=== PATIENT | female | born 1980 | race Caucasian/White ===

== ENCOUNTER 2020-08-18 14:19 | Outpatient (REF) | payer OTHER, SELFPAY | END 2020-08-18 14:20 | disposition home or self-care (01) | LOC: HO.LNP 14:19 | PROVIDERS: Visit Provider Internal Medicine Gastroenterology | DX: A04.8 Other specified bacterial intestinal infections (principal) | CPT/HCPCS: 87338 ==

== ENCOUNTER 2020-11-12 15:52 | Emergency (ER) | payer OTHER, SELFPAY ==
[2020-11-12] VITALS (7 sets, daily range): BP systolic 120–157; BP diastolic 74–94; PULSE 88–117; RESP 16–17; TEMP 36.9–37.1; O2SAT 96–100; BMI 24.1
--- NOTE | 2020-11-12 16:11 | ECG_ITS ---
Test Reason : DIZZINESS Blood Pressure : / mmHG Vent. Rate : 098 BPM Atrial Rate : 098 BPM P-R Int : 172 ms QRS Dur : 086 ms QT Int : 378 ms P-R-T Axes : 073 041 052 degrees QTc Int : 482 ms Normal sinus rhythm Prolonged QT Abnormal ECG No previous ECGs available Referred By: Ml Boo Electronically Signed By:KEE WHITESIDE
--- NOTE | 2020-11-12 16:11 | CT_ITS ---
EXAMINATION: CT HEAD WITHOUT CONTRAST CLINICAL INFORMATION: Dizziness. COMPARISON: None TECHNIQUE: Contiguous axial imaging was performed from the skull base to vertex without intravenous administration of contrast. This CT examination was performed using dose optimization techniques as appropriate, variously including the following: *Automated exposure control *Adjustment of mA and/or kV according to patient size (this includes techniques or standardized protocols for targeted exams where dose is matched to indication/reason for exam; i.e. extremities or head) *Use of iterative reconstruction technique DLP: 609 mGy-cm FINDINGS: There is no evidence of acute intracranial hemorrhage or territorial infarction. No abnormal mass effect or midline shift is seen. Baker to white matter differentiation is well preserved. No extra-axial fluid collections are identified. The ventricles are normal in size. There is no abnormal attenuation within the brain parenchyma. The osseous structures and soft tissues are normal. The mastoid air cells and visualized portions of the paranasal sinuses are well aerated. CT/CT head/brain wo con IMPRESSION: No acute intracranial process seen.
--- NOTE | 2020-11-12 16:12 | ED.DIZZY ---
HPI - Dizziness General Chief Complaint: Dizziness Stated Complaint: dissyness Time Seen by Provider: 11/12/20 16:11 Source: patient Mode of arrival: ambulatory Limitations: no limitations History of Present Illness MD elicited complaint: dizziness, lightheadedness and vertigo Onset (ago): week(s) (started on 11/05) Timing: sudden onset, intermittent and episodic Severity: severe Description: sense of movement and room spinning Context: change in body position and recent illness (started a couple of days after a GI vomiting illness) History of similar symptoms: No Exacerbating factors: movement/ambulation and change in body position Relieving factors: remaining still, lying down and keeping eyes closed Associated symptoms: nausea and weakness Associated neuro symptoms: other (one night while driving felt her perception was off) Related Data Previous Rx's Medication Instructions Recorded meclizine 25 mg PO TID PRN #30 tab 11/12/20 Allergies Allergy/AdvReac Type Severity Reaction Status Date / Time ALLERGY MEDICINE Allergy Unknown PUPILS Uncoded 07/29/20 15:59 DILATE AND GRINDING OF TEETH Review of Systems Review of Systems: Constitutional : No Weight loss, No Fever, No Chills, pos Fatigue, No Malaise ENT/Mouth : No sore throat, No Rhinorrhea Eyes: No Eye Pain, No Swelling, No Redness Cardiovascular : No Chest Pain, No SOB, No Dyspnea on Exertion, No Orthopnea, No Edema, No Palpitations Respiratory : No Cough, No Sputum, No Wheezing Gastrointestinal : pos Nausea, No Vomiting, No Diarrhea, No Constipation, No abdominal Pain, No Hematochezia, No Melena Genitourinary : No Dysuria, No Urinary Frequency, No Hematuria, Musculoskeletal : No joint pain, No Myalgias, No Joint Swelling Skin : No Skin Lesions, No rash Neuro : pos Weakness, No Numbness, pos Dizziness, No Headache Psych : No Anxiety/Panic, No Depression Heme/Lymph: No Bruising, No Bleeding,No Lymphadenopathy Endocrine : No Polyuria, No Polydipsia All other systems reviewed and are negative [facility] Past Medical History Attestation statement: The following information was validated with the patient. Medical History Methadone dependence Social History Social History (Updated 11/12/20 @ 16:36 by Ml Boo DO) Alcohol intake: never Smoking Status: Never smoker Use of substances other than those prescribed or required for medical reasons: No Substance Use Type: Former Substance User Advance Directives: No Advance Directives Information Provided: No Physical Exam Vital Signs: Vital Signs: Last Vital Signs Temp 98.7 F 11/12/20 16:02 Pulse 112 H 11/12/20 16:25 Resp 17 11/12/20 16:02 BP 153/90 H 11/12/20 16:25 Pulse Ox 100 11/12/20 16:02 Body Mass Index 24.1 Appearance: Alert. Oriented X3. No acute distress. very anxious Eyes: Pupils equal, round and reactive to light. ENT: Pharynx normal. Neck: Normal inspection. Neck supple. CVS: tachycardic heart rate and rhythm. Pulses normal. Respiratory: No respiratory distress. Breath sounds normal. Abdomen: Soft and non-tender. Skin: Skin warm and dry. Normal skin color. Normal skin turgor. Extremities: No lower extremity edema. No calf ttp Neuro: Oriented X 3. No motor deficit. No sensory deficit. Course Course Course Narrative: up and walking feels much better, stable for DC at this time MDM - Dizziness MDM Narrative Medical decision making narrative: 40 yo female with dizziness and feeling the room is spinning with position changes or head turning started after GI bug will need labs, ortho VS, CT head for mass, IV ativan, hydration, EKG, could be vertigo vs dehydration dispo per results and findings. Lab Data Result diagrams: 11/12/20 16:35 11/12/20 16:35 Labs: Lab Results 11/12/20 11/12/20 11/12/20 Range/Units 16:08 16:08 16:35 WBC 8.4 (4.8-10.8) X10*3/uL RBC 4.09 L (4.20-5.50) X10*6/uL Hgb 12.1 (12.0-16.0) g/dl Hct 36.3 L (37-47) % MCV 88.8 (80-98) fL MCH 29.6 (27.0-33.0) pg MCHC 33.3 (31.0-35.0) g/dl RDW 12.7 (11.0-16.0) % Plt Count 287 (160-400) X10*3/uL MPV 9.2 L (9.4-12.3) fL Immature Gran % (Auto) 0.4 (0.0-0.4) % Neut % (Auto) 79.3 H (45-73) % Lymph % (Auto) 11.6 L (20-40) % Potter % (Auto) 6.1 (2-11) % Eos % (Auto) 2.4 (0-4) % Baso % (Auto) 0.2 (0-2) % Lymph # (Auto) 1.0 L (1.2-4.9) X10*3/uL Potter # (Auto) 0.5 (0.1-1.2) X10*3/uL Eos # (Auto) 0.2 (0.0-0.4) X10*3/uL Baso # (Auto) 0.0 (0.0-0.2) X10*3/uL Abs Immat Gran (auto) 0.03 (0.00-0.03) X10*3/uL Absolute Neuts (auto) 6.7 (2.0-8.3) X10*3/uL Absolute Nucleated RBC 0.000 (0.0-0.012) X10*3/uL Nucleated RBC % (auto) 0.0 (0.0-0.2) /100WBC Hold Blue Top Sodium (135-145) mmol/L Potassium (3.3-5.1) mmol/l Chloride (96-108) mmol/L Carbon Dioxide (22-29) mmol/L Anion Gap (12-20) BUN (9-16) mg/dL Creatinine (0.5-1.4) mg/dL Estim Creat Clear Calc Estimated GFR Random Glucose (60-115) mg/dL Calcium (8.4-10.2) mg/dL Magnesium (1.6-2.6) mg/dL Total Bilirubin (0.0-1.0) mg/dL Direct Bilirubin (0.0-0.5) mg/dL AST (5-31) U/L ALT (0-31) U/L Alkaline Phosphatase (39-117) U/L Total Protein (6.5-8.0) g/dL Albumin (3.5-5.0) g/dL Lipase (8-78) U/L TSH (0.32-4.0) uIU/mL Urine Color STRAW Urine Appearance CLEAR Urine pH 7.0 (5.0-8.0) Ur Specific [place] <= 1.005 (1.005-1.025) Urine Protein NEG (NEG-TRACE) MG/DL Urine Glucose (UA) NEG (NEG) MG/DL Urine Ketones NEG (NEG) MG/DL Urine Blood NEG (NEG) Urine Nitrite NEG (NEG) Ur Leukocyte Esterase NEG (NEG) Urine Test NEGATIVE (NEGATIVE) COVID-19 (SKINNY) (Negative) COVID-19 Clin Com 11/12/20 11/12/20 11/12/20 Range/Units 16:35 16:35 16:35 WBC (4.8-10.8) X10*3/uL RBC (4.20-5.50) X10*6/uL Hgb (12.0-16.0) g/dl Hct (37-47) % MCV (80-98) fL MCH (27.0-33.0) pg MCHC (31.0-35.0) g/dl RDW (11.0-16.0) % Plt Count (160-400) X10*3/uL MPV (9.4-12.3) fL Immature Gran % (Auto) (0.0-0.4) % Neut % (Auto) (45-73) % Lymph % (Auto) (20-40) % Potter % (Auto) (2-11) % Eos % (Auto) (0-4) % Baso % (Auto) (0-2) % Lymph # (Auto) (1.2-4.9) X10*3/uL Potter # (Auto) (0.1-1.2) X10*3/uL Eos # (Auto) (0.0-0.4) X10*3/uL Baso # (Auto) (0.0-0.2) X10*3/uL Abs Immat Gran (auto) (0.00-0.03) X10*3/uL Absolute Neuts (auto) (2.0-8.3) X10*3/uL Absolute Nucleated RBC (0.0-0.012) X10*3/uL Nucleated RBC % (auto) (0.0-0.2) /100WBC Hold Blue Top SEE NOTE Sodium 138 (135-145) mmol/L Potassium 4.7 (3.3-5.1) mmol/l Chloride 98 (96-108) mmol/L Carbon Dioxide 31 H (22-29) mmol/L Anion Gap 14 (12-20) BUN 8 L (9-16) mg/dL Creatinine 0.82 (0.5-1.4) mg/dL Estim Creat Clear Calc 80.4 Estimated GFR > 60 Random Glucose 98 (60-115) mg/dL Calcium 9.5 (8.4-10.2) mg/dL Magnesium 2.1 (1.6-2.6) mg/dL Total Bilirubin 0.2 (0.0-1.0) mg/dL Direct Bilirubin < 0.2 (0.0-0.5) mg/dL AST 48 H (5-31) U/L ALT 48 H (0-31) U/L Alkaline Phosphatase 99 (39-117) U/L Total Protein 8.0 (6.5-8.0) g/dL Albumin 4.8 (3.5-5.0) g/dL Lipase 9 (8-78) U/L TSH 1.26 (0.32-4.0) uIU/mL Urine Color Urine Appearance Urine pH (5.0-8.0) Ur Specific [place] (1.005-1.025) Urine Protein (NEG-TRACE) MG/DL Urine Glucose (UA) (NEG) MG/DL Urine Ketones (NEG) MG/DL Urine Blood (NEG) Urine Nitrite (NEG) Ur Leukocyte Esterase (NEG) Urine Test (NEGATIVE) COVID-19 (SKINNY) Negative (Negative) COVID-19 Clin Com See Note ECG Data Attestation: I personally reviewed and interpreted this ECG as follows: ECG interpretation date: 11/12/20 ECG interpretation time: 16:54 Interpretation: Rate: 98 Rhythm: NSR [place]: normal Normal P waves. Normal MARIANNE. Normal QRS complex. ST T wave : normal prolonged qtc prior studies: no acute ischemia The study has been interpreted contemporaneously by me. . Discharge Plan Discharge Clinical Impression: Dizziness, Elevated liver function tests Patient Disposition: Home, Self-Care Instructions: Dizziness (ED) Additional Instructions: return to ED for any worsening symptoms or concerns Prescriptions: New meclizine 25 mg tablet 25 mg PO TID PRN (Reason: dizziness) Qty: 30 RF: 0 Referrals: Luis Francois MD [Primary Care Provider] - 3 days (if not better, RECHECK LIVER FUNCTION IN 1 WEEK) Stand Alone Forms: Work/School Release
[2020-11-12 16:17] LABS: UPreg QC Valid YES; Urine Pregnancy NEGATIVE (NEGATIVE)
[2020-11-12] MEDS: Meclizine HCl 25 MG TABLET PO (16:29)
[2020-11-12] MEDS: LORazepam 1 MG TABLET PO (16:29)
[2020-11-12] MEDS: 0.9 % Sodium Chloride 1,000 ML 999 ML IVCONT ×2 (16:38→18:40)
[2020-11-12 16:43] LABS: Basophils Percent Auto 0.2 % (0-2); Eosinophils Absolute Auto 0.2 X10*3/uL (0.0-0.4); Eosinophils Percent Auto 2.4 % (0-4); Hematocrit 36.3 % (37-47); Hemoglobin 12.1 g/dl (12.0-16.0); Imm Gran Abs Auto 0.03 X10*3/uL (0.00-0.03); Imm Gran Pct Auto 0.4 % (0.0-0.4); Lymphocytes Percent Auto 11.6 % (20-40); Mean Corpuscular HGB Conc 33.3 g/dl (31.0-35.0); Mean Corpuscular Hemoglobin 29.6 pg (27.0-33.0); Mean Corpuscular Volume 88.8 fL (80-98); Mean Platelet Volume 9.2 fL (9.4-12.3); Monocytes Absolute Auto 0.5 X10*3/uL (0.1-1.2); Monocytes Percent Auto 6.1 % (2-11); Neutrophils Absolute Auto 6.7 X10*3/uL (2.0-8.3); Neutrophils Percent Auto 79.3 % (45-73); Platelet Count 287 X10*3/uL (160-400); Red Blood Count 4.09 X10*6/uL (4.20-5.50); Red Cell Distribution Width 12.7 % (11.0-16.0); White Blood Count 8.4 X10*3/uL (4.8-10.8)
[2020-11-12 16:44] LABS: MANUAL DIFF FLAG NO
[2020-11-12 16:52] LABS: Glucose Urine UA NEG (NEG); Leukocyte Esterase Urine NEG (NEG); Nitrite Urine NEG (NEG); Specific Gravity - Urine <= 1.005 (1.005-1.025); Urine Blood NEG (NEG); Urine Ketones NEG (NEG); Urine Protein NEG (NEG-TRACE)
[2020-11-12 16:57] LABS: Appearance Urine CLEAR; Color Urine STRAW
[2020-11-12 17:06] LABS: COVID-19 Test Negative (Negative)
[2020-11-12 17:14] LABS: Alanine Aminotransferase 48 U/L (0-31); Albumin Level 4.8 g/dL (3.5-5.0); Alkaline Phosphatase 99 U/L (39-117); Anion Gap 14 (12-20); Aspartate Amino Transferase 48 U/L (5-31); Bilirubin Direct < 0.2 mg/dL (0.0-0.5); Bilirubin Total 0.2 mg/dL (0.0-1.0); Blood Urea Nitrogen 8 mg/dL (9-16); Calcium 9.5 mg/dL (8.4-10.2); Carbon Dioxide 31 mmol/L (22-29); Chloride 98 mmol/L (96-108); Creatinine Clr Calc Pharmacy 80.4; Estimated Glomerular Filt Rate > 60; Glucose Random 98 mg/dL (60-115); Lipase 9 U/L (8-78); Magnesium 2.1 mg/dL (1.6-2.6); Potassium 4.7 mmol/l (3.3-5.1); Sodium 138 mmol/L (135-145)
[2020-11-12 17:34] LABS: Thyroid Stimulating Hormone 1.26 uIU/mL (0.32-4.0)
--- NOTE | 2020-11-12 19:27 | PC.NURSE ---
ORTHOSTIC VITALS REPEATED DOCUMENTED AND REPORTED TO MD . PT AMBULATED WITH ASSISTANCE DIRECTED BY DR MCQUEEN. PT COMPLAINED OF NO DIZZINESS OR NAUSEA. PT STATED I FEEL IF I AM DRIFTING TO THE RIGHT AFTER TURNING THE CORNER PT DIRECTED BACK TO BED DR MCQUEEN AWARE
== END 2020-11-12 20:24 | disposition home or self-care (01) ==
PROVIDERS: Emergency Provider Emergency Medicine; PCP Internal Medicine
DX: R42 Dizziness and giddiness (principal); R79.89 Other specified abnormal findings of blood chemistry; Z20.828 Contact with and (suspected) exposure to other viral communicable diseases; F11.20 Opioid dependence, uncomplicated
CPT/HCPCS: 36415; 70450; 80048; 80076; 81003; 81025; 83690; 83735; 84443; 85025; 87635; 93005; 96360; 96361; 99284

== ENCOUNTER 2021-08-20 15:40 | Outpatient (REF) | payer OTHER, SELFPAY ==
[2021-08-20 15:56] LABS: Appearance Urine CLOUDY; Color Urine YELLOW; Glucose Urine UA NEG (NEG); Leukocyte Esterase Urine NEG (NEG); Nitrite Urine NEG (NEG); Specific Gravity - Urine >= 1.030 (1.005-1.025); Urine Blood NEG (NEG); Urine Ketones NEG (NEG); Urine Protein NEG (NEG-TRACE)
== END 2021-08-20 15:41 | disposition home or self-care (01) ==
LOC: HO.LNP 15:40
PROVIDERS: Visit Provider Physician Assistant Medical
DX: R39.15 Urgency of urination (principal)
CPT/HCPCS: 81003

== ENCOUNTER 2024-08-15 14:56 | Outpatient (REF) | payer OTHER, SELFPAY | END 2024-08-15 14:57 | disposition home or self-care (01) | LOC: HO.LAB 14:56 | PROVIDERS: PCP Internal Medicine; Visit Provider Internal Medicine | DX: Z13.89 Encounter for screening for other disorder (principal) ==

== ENCOUNTER 2024-08-18 06:57 | Outpatient (REF) | payer OTHER, SELFPAY ==
[2024-08-18 07:15] LABS: MANUAL DIFF FLAG NO
[2024-08-18 07:51] LABS: Basophils Percent Auto 0.7 % (0-2); Eosinophils Absolute Auto 0.1 X10*3/uL (0.0-0.4); Eosinophils Percent Auto 2.3 % (0-4); Hematocrit 33.2 % (37.0-47.0); Hemoglobin 10.9 g/dl (12.0-16.0); Imm Gran Abs Auto 0.04 X10*3/uL (0.00-0.03); Imm Gran Pct Auto 0.7 % (0.0-0.4); Mean Corpuscular HGB Conc 32.8 g/dl (31.0-35.0); Mean Corpuscular Hemoglobin 31.3 pg (27.0-33.0); Mean Corpuscular Volume 95.4 fL (80.0-98.0); Mean Platelet Volume 9.7 fL (9.4-12.3); Monocytes Absolute Auto 0.4 X10*3/uL (0.1-1.2); Monocytes Percent Auto 6.6 % (2-11); Neutrophils Absolute Auto 3.2 x10*3/uL (2.0-8.3); Neutrophils Percent Auto 54.7 % (45-73); Platelet Count 301 X10*3/uL (160-400); Red Blood Count 3.48 X10*6/uL (4.20-5.50); Red Cell Distribution Width 16.3 % (11.0-16.0); White Blood Count 5.8 X10*3/uL (4.8-10.8)
[2024-08-18 08:30] LABS: Alanine Aminotransferase 49 U/L (0-31); Albumin Level 4.7 g/dL (3.5-5.0); Alkaline Phosphatase 74 U/L (39-117); Anion Gap 10 (12-20); Aspartate Amino Transferase 35 U/L (5-31); Bilirubin Total 0.2 mg/dL (0.0-1.0); Blood Urea Nitrogen 12 mg/dL (9-16); Calcium 9.6 mg/dL (8.4-10.2); Carbon Dioxide 32 mmol/L (22-29); Chloride 103 mmol/L (96-108); Cholesterol 395 mg/dL (<200); Estimated Glomerular Filt Rate 51; Glucose Random 95 mg/dL (60-115); Potassium 4.2 mmol/L (3.3-5.1); Sodium 141 mmol/L (135-145); Total Protein 7.8 g/dL (6.5-8.0)
[2024-08-18 08:54] LABS: Thyroid Stimulating Hormone > 100.00 uIU/mL (0.32-4.0); Vitamin D 25-OH Total 13.1 ng/mL (>30)
== END 2024-08-18 06:58 | disposition home or self-care (01) ==
LOC: HO.LAB 06:57
PROVIDERS: PCP Internal Medicine; Visit Provider Internal Medicine
DX: R63.5 Abnormal weight gain (principal); F41.9 Anxiety disorder, unspecified; L30.9 Dermatitis, unspecified
CPT/HCPCS: 36415; 80053; 82306; 82465; 84443; 85025

== ENCOUNTER 2024-10-19 14:25 | Emergency (ER) | payer OTHER, SELFPAY ==
--- NOTE | 2024-10-19 14:28 | ED.BACK ---
HPI - Back Pain/Injury General Chief Complaint: Back Pain/Injury Stated Complaint: sciatica Time Seen by Provider: 10/19/24 16:54 Source: patient and family Mode of arrival: ambulatory Limitations: no limitations History of Present Illness ED Provider: Cristopher HPI Narrative: This is a 44-year-old female who presents with 1 week of left hip pain that radiates down into her knee. Patient reports that when the pain came on she was sitting on the toilet. She reports that the past 2 days she was feeling okay and attempted to try and go into work, however the pain became significantly worse. She does have a history of degenerative changes, as well as history of a pinched nerve in her neck that she was seen at [facility] for approximately 3-4 years ago. Patient has taken high doses of ibuprofen, intermittent Tylenol, low doses of left over gabapentin she had, is on 30 mg of methadone daily, all without relief of her symptoms. She reports that the pain comes and goes, feels that her left hip to her left knee, numbness over the knee. She denies saddle anesthesia, bowel or bladder incontinence. Onset (ago): week(s) Timing: intermittent Quality: tingling Radiation: left upper leg and left leg below the knee Exacerbating factors: movement Relieving factors: immobilization Related Data Home Medications ?Medication ?Instructions ?Recorded ?Confirmed atomoxetine 60 mg capsule 60 mg PO DAILY 08/20/21 (Strattera) clonidine HCl 0.1 mg tablet 0.1 mg PO DAILY 08/20/21 fluticasone propionate 50 2 spray intranasal DAILY 08/20/21 mcg/actuation nasal spray,suspension valacyclovir 1 gram tablet 1,000 mg PO BID 08/20/21 Previous Rx's ?Medication ?Instructions ?Recorded nitrofurantoin 100 mg PO Q12H 5 days #10 caps 08/20/21 monohydrate/macrocrystals 100 mg capsule (Macrobid) cyclobenzaprine 10 mg tablet 10 mg PO TID PRN muscle spasm #20 10/19/24 tabs dexamethasone 4 mg tablet 4 mg PO BID #6 tabs 10/19/24 oxycodone-acetaminophen 5 mg-325 1 tab PO Q4H PRN severe pain 10/19/24 mg tablet (Percocet) (scale score 7-10) #12 tabs Allergies Allergy/AdvReac Type Severity Reaction Status Date / Time dextromethorphan Allergy Unknown Verified 10/19/24 14:35 Review of Systems Constitutional: Constitutional: Denies chills and Denies fever(s) Gastrointestinal: Gastrointestinal: Denies fecal incontinence Genitourinary: Genitourinary: Denies urinary incontinence Musculoskeletal: Musculoskeletal: Reports back pain, Reports arthralgias, Reports limited range of motion, Reports numbness, Reports radiating pain into limb and Reports tingling Neurologic: Reports numbness and Reports tingling PMFSH Past Medical History Medical History Methadone dependence Social History Social History (Updated 11/12/20 @ 16:36 by Kat Boo DO) Alcohol intake: never Substance Use Type: Former Substance User Advance Directives: No Advance Directives Information Provided: No Physical Exam Vital Signs: Vital Signs: Last Vital Signs Temp 98.7 F 10/19/24 17:52 Pulse 81 10/19/24 17:52 Resp 16 10/19/24 17:52 BP 130/73 10/19/24 17:52 Pulse Ox 97 10/19/24 17:52 O2 Del Method Room Air 10/19/24 17:52 BMI result Body Mass Index 23.1 Const: General: cooperative, healthy appearing and no acute distress Nutritional Appearance: average body habitus Orientation/consciousness: patient oriented x3 Back/Spine/Pelvis: Other: No tenderness to palpation of the lower back or SI joints bilaterally. Unable to reproduce pain with palpation of the left greater trochanter area. Patellar reflexes intact Straight leg positive on left Normal gait, without footdrop. Thoracic/Lumbar Spine: No thoracic spinal tenderness, No lumbar spinal tenderness and No straight leg raise positive Neuro: General: patient oriented x3 Gait exam (Neuro): Normal gait present and not shuffling Motor exam (neuro): 5/5 motor strength present throughout Course Course Course Narrative: This is a rapid medical exam. Deferred additional HPI, ROS, PE to primary provider. 44 yo female with history of chronic back pain, hypothyroidism here with complaint of 1 week of pain that radiates from left lower back down leg to knee with some numbness. No incontinence of urine/stool. No numbness in groin. No fevers/chills. No urinary symptoms. At home patient has been taking 600mg ibuprofen, left over gabapentin (several tabs) and tylenol. On methadone 30mg daily. Tachycardic in triage 120-130's. Quite uncomfortable so may be secondary to pain. Will need exam, pain control -Justus Vanegas APRN Medications Administered Discontinued Medications Generic Name Dose Route Start Last Admin Trade Name Denis PRN Reason Stop Dose Admin Ketorolac Tromethamine 15 mg 10/19/24 15:46 10/19/24 15:59 Ketorolac Tromethamine 15 Mg/Ml Vial IM 10/19/24 15:47 15 mg ONCE ONE Administration Methylprednisolone Sodium Succinate 60 mg 10/19/24 15:46 10/19/24 15:59 Methylprednisolone Sod Succ 125 Mg/2 Ml Vial IM 10/19/24 15:47 60 mg ONCE ONE Administration Medical Decision Making Medical Decision Making [facility] Narrative: Patient has a history of chronic back pain presents for evaluation of acute on chronic back pain. No warning signs for cauda equina syndrome, no fever the patient has no active IV drug abuse, less likely infectious process. We will treat the patient's pain symptomatically. She will follow up with her outpatient providers Differential Diagnosis Differential Diagnoses: The differential diagnosis associated with the presentation includes Sciatica Trochanteric bursitis Acute low back pain Radiculopathy Lumbar radiculopathy Lab Data [facility] Lab Attestation statement: I reviewed the patient's lab results. No leukocytosis. The patient has an anemia consistent with a baseline. Normal platelet count. No significant electrolyte abnormalities 10/19/24 15:53 10/19/24 15:53 Labs: Lab Results 10/19/24 Range/Units 15:53 WBC 5.9 (4.8-10.8) X10*3/uL RBC 3.36 L (4.20-5.50) X10*6/uL Hgb 10.4 L (12.0-16.0) g/dl Hct 30.9 L (37.0-47.0) % MCV 92.0 (80.0-98.0) fL MCH 31.0 (27.0-33.0) pg MCHC 33.7 (31.0-35.0) g/dl RDW 13.7 (11.0-16.0) % Plt Count 315 (160-400) X10*3/uL MPV 9.2 L (9.4-12.3) fL Immature Gran % (Auto) 0.3 (0.0-0.4) % Neut % (Auto) 73.0 (45-73) % Lymph % (Auto) 14.9 L (20-40) % [place] % (Auto) 8.4 (2-11) % Eos % (Auto) 2.9 (0-4) % Baso % (Auto) 0.5 (0-2) % Lymph # (Auto) 0.9 L (1.2-4.9) X10*3/uL [place] # (Auto) 0.5 (0.1-1.2) X10*3/uL Eos # (Auto) 0.2 (0.0-0.4) X10*3/uL Baso # (Auto) 0.0 (0.0-0.2) X10*3/uL Abs Immat Gran (auto) 0.02 (0.00-0.03) X10*3/uL Absolute Neuts (auto) 4.3 (2.0-8.3) x10*3/uL Absolute Nucleated RBC 0.000 (0.0-0.012) X10*3/uL Nucleated RBC % (auto) 0.0 (0.0-0.2) /100WBC Sodium 140 (135-145) mmol/L Potassium 4.1 (3.3-5.1) mmol/L Chloride 105 (96-108) mmol/L Carbon Dioxide 28 (22-29) mmol/L Anion Gap 11 L (12-20) BUN 12 (9-16) mg/dL Creatinine 0.84 (0.5-1.4) mg/dL Estim Creat Clear Calc 75.2 Estimated GFR > 60 Random Glucose 87 (60-115) mg/dL Calcium 9.3 (8.4-10.2) mg/dL Total Bilirubin 0.2 (0.0-1.0) mg/dL AST 20 (5-31) U/L ALT 16 (0-31) U/L Alkaline Phosphatase 59 (39-117) U/L Total Protein 6.9 (6.5-8.0) g/dL Albumin 4.0 (3.5-5.0) g/dL Discharge Plan Discharge Clinical Impression: Sciatica Patient Disposition: Home, Self-Care Instructions: Sciatica (ED) Additional Instructions: Your blood work today was reassuring. Your symptoms are most consistent with sciatica. Take dexamethasone 4 mg twice daily for the next 3 days starting tomorrow. You may continue to use ibuprofen as needed for pain. You may use Percocet as needed for severe breakthrough pain Take cyclobenzaprine as needed for muscle spasms. These medications may make you drowsy, do not drink alcohol or drive after taking the Follow-up with your primary doctor in you may follow-up with outpatient orthopedics Prescriptions: New dexamethasone 4 mg tablet 4 mg PO BID Qty: 6 0RF cyclobenzaprine 10 mg tablet 10 mg PO TID PRN (Reason: muscle spasm) Qty: 20 0RF oxycodone-acetaminophen [Percocet] 5-325 mg tablet 1 tab PO Q4H PRN (Reason: severe pain (scale score 7-10)) Qty: 12 0RF Rx Instructions: Partial Fill upon patient request. No Action nitrofurantoin monohyd/m-cryst [Macrobid] 100 mg capsule 100 mg PO Q12H 5 Days Qty: 10 0RF Rx Instructions: must administer with a meal/food Stand Alone Forms: Work/School Release Discharge Date/Time: 10/19/24 17:54 Print Language: Turkish
[2024-10-19 14:29] VITALS: BP 138/90; PULSE 124; RESP 18; TEMP 37.1; O2SAT 98; BMI 23.1
[2024-10-19] MEDS: methylPREDNISolone Sod Succ 125 MG/2 ML VIAL 60 MG IM (15:59)
[2024-10-19] MEDS: Ketorolac Tromethamine 15 MG/ML VIAL IM (15:59)
[2024-10-19 16:00] LABS: MANUAL DIFF FLAG NO
[2024-10-19 16:01] LABS: Basophils Percent Auto 0.5 % (0-2); Eosinophils Absolute Auto 0.2 X10*3/uL (0.0-0.4); Eosinophils Percent Auto 2.9 % (0-4); Hematocrit 30.9 % (37.0-47.0); Hemoglobin 10.4 g/dl (12.0-16.0); Imm Gran Abs Auto 0.02 X10*3/uL (0.00-0.03); Imm Gran Pct Auto 0.3 % (0.0-0.4); Lymphocytes Absolute Auto 0.9 X10*3/uL (1.2-4.9); Lymphocytes Percent Auto 14.9 % (20-40); Mean Corpuscular HGB Conc 33.7 g/dl (31.0-35.0); Mean Platelet Volume 9.2 fL (9.4-12.3); Monocytes Absolute Auto 0.5 X10*3/uL (0.1-1.2); Monocytes Percent Auto 8.4 % (2-11); Neutrophils Absolute Auto 4.3 x10*3/uL (2.0-8.3); Platelet Count 315 X10*3/uL (160-400); Red Blood Count 3.36 X10*6/uL (4.20-5.50); Red Cell Distribution Width 13.7 % (11.0-16.0); White Blood Count 5.9 X10*3/uL (4.8-10.8)
[2024-10-19 16:30] LABS: Anion Gap 11 (12-20); Aspartate Amino Transferase 20 U/L (5-31); Bilirubin Total 0.2 mg/dL (0.0-1.0); Blood Urea Nitrogen 12 mg/dL (9-16); Calcium 9.3 mg/dL (8.4-10.2); Carbon Dioxide 28 mmol/L (22-29); Chloride 105 mmol/L (96-108); Creatinine Clr Calc Pharmacy 75.2; Estimated Glomerular Filt Rate > 60; Glucose Random 87 mg/dL (60-115); Potassium 4.1 mmol/L (3.3-5.1); Sodium 140 mmol/L (135-145); Total Protein 6.9 g/dL (6.5-8.0)
[2024-10-19 16:33] LABS: Alanine Aminotransferase 16 U/L (0-31); Alkaline Phosphatase 59 U/L (39-117)
[2024-10-19 16:52] VITALS: BP 126/73; PULSE 72; RESP 20; TEMP 36.9; O2SAT 98
[2024-10-19 17:52] VITALS: BP 130/73; PULSE 81; RESP 16; TEMP 37.1; O2SAT 97
--- OUTSIDE RECORDS SUMMARY | 2024-10-22 12:09 | XMS_ITS ---
Author Organization [facility] Address [address] [place] [address] Care Team Providers Care Nursing Specialist Name Role Phone Luis Francois MD Primary Care Provider UnavailEnrrique Riggs Jr REASON FOR VISIT Patient presents today for a screening colonoscopy Encounters Encounter Location Date Provider Diagnosis [facility] [address] [place] [address] 10/29/2023 Enrrique Roper Jr PLAN OF TREATMENT No Information
--- OUTSIDE RECORDS SUMMARY | 2024-10-22 12:09 | XMS_ITS | Data Portability ---
Author Organization [facility] [address] Address [address] [place] [address] Assessment No assessment recorded. Plan of Treatment Reminders Order Date Submit Date Provider Last Modified By Organization Details Last Modified Time Details Appointments None recorded. Lab None recorded. Referral None recorded. Procedures None recorded. Surgeries None recorded. Imaging None recorded. Medication Orders polymyxin B sulfate 10,000 unit-trime thoprim 1 mg/mL eye drops 2022 023 [id number], [address], [place], [id number], 17:18:55 Patient TargetsNo targets recorded. Patient Instructions Encounter Date Encounter Id Patient Instructions Last Modified By Organization Details Last Modified Time 07/01/2023 [id number] eneida: care instructions [email or web address] Not available 07/01/2023 17:19:25 Reason for Referral None Reported. Problems Name Problem SNOMED Code Status Onset Date Resolution Date Notes Provider Name and Address Organization Details Recorded Time Eczema 88952774 Active 2022 FILIPE valdes, [place] - [facility] 17:02:27 Attention deficit hyperactivity disorder 665171662 Active 2022 FILIPE valdes, [place] - [facility] 3 17:03:02 Herpes simplex type 1 infection 226943411 Active 2022 FILIPE valdes, [place] - [facility] 17:03:24 Problem Notes None recorded. Procedures Surgical History Date Name Laterality Status Provider Name and Address Organization Details Recorded Time nasal sinus procedure completed FILIPE JOHNSON - [facility] 07/01/2023 17:04:16 Imaging Results None recorded. Procedure Notes None recorded. Medical Equipment None Reported. Allergies Allergen ID Allergen Name Allergen Category Reaction Reaction Severity Criticality Documentation Date Start Date Code Code System Note Provider Name and Address Organization Details Recorded Time 754153 dextromet horphan medicatio n other Not available Not available 07/01/2023 3289 RxNorm feel s jana ALEX Doe - [facility] 3 17:01:50 Medications Name Sig Start Date Stop Date Status Note LastModified by Organization Details LastModified Time clindamycin HCl 300 mg capsule TAKE 1 CAPSULE BY MOUTH EVERY 8 HOURS FOR 7 DAYS. 07/01 completed Not Available Not Available Not Available azithromyci n 250 mg tablet TAKE 1 TABLET BY MOUTH EVERY DAY 07/01 completed Not Available Not Available Not Available valacyclovi r 1 gram tablet TAKE 1 TABLET BY MOUTH TWICE DAILY active Not Available Not Available No t Available dextroamphe tamine-amph etamine 10 mg tablet 07/01 completed Not Available Not Available Not Available dextroamphe tamine-amph etamine ER 20 mg 24hr capsule,ext end release 07/01 completed Not Available Not Available Not Available polymyxin B sulfate 10,000 unit-trimet hoprim 1 mg/mL eye drops INSTILL 1 DROP INTO AFFECTED EYE(S) BY OPHTHALMI C ROUTE EVERY 6 HOURS active Not Available Not Available No t Available dextroamphe tamine-amph etamine ER 10 mg 24hr capsule,ext end release active Not Available Not Available Not Available dextroamphe tamine-amph etamine 5 mg tablet active Not Available Not Available No t Available clonidine active Not Available Not Radha ilable Not Available methadone active Not Available Not Radha ilable Not Available Vitals Date Recorded Body height Body mass index (BMI) Body weight Respiratory rate Oxygen saturation Oxygen saturation in Arterial blood by Pulse oximetry Heart rate Body temperature Systolic blood pressure Diastolic blood pressure Provider Name and Address Organization Details Last Updated DateTime 3 163.83 cm 22 kg/m2 04152.0 1 g 19 /min 98 % 98 % 104 /min 97.7 [degF] 105 mm[Hg] 74 mm[Hg] FILIPE JOHNSON - [facility] 3 17:06:00 Social History Question Answer Notes LastModified by Organizat ion Details LastModified Time Tobacco Smoking Status Former Smoker ALEX Doe - [facility] 07/01/2023 17:03:40 What Is Your Level Of Alcohol Consumption? None [email or web address] Information not available 07/01/2023 Do You Or Have You Ever Used E-cigarettes Or Vape? Current User Of Electronic Cigarettes [email or web address] Information not available 07/01/2023 When Did You Quit Smoking? 6-10yearssince lastcigarette [email or web address] Information not available 07/01/2023 Do You Use Any Illicit Or Recreational Drugs? No [email or web address] Information not available 07/01/2023 Have You Recently Traveled Abroad? No Information not available 07/01/2023 Do You Or Have You Ever Used Any Other Forms Of Tobacco Or Nicotine? Yes [email or web address] Information not available 07/01/2023 Sex: Unknown Functional Status None recorded. Mental Status None recorded. Family History Nothing Reported. Medical History No medical history recorded. Gynecological History Statement/Question Response Date of LMP 06/03/2023 Is there any chance of ? No Obstetrics History GPAL:G 0 P 0 0 0 0 Past Encounters Encounter ID Performer Location Encounter Start Date Encounter Closed Date Diagnosis/Indication Diagnosis SNOMED-CT Code Diagnosis ICD10 Code [id number] [place] [address] [facility] [address] [place] [address] 07/01/2023 16:40:33 07/01/2023 17:21:57 Acute conjunctivitis of left eye 0820588276 29305 H10.32 Health Concerns Section Related Observation LastModified by Organization Detai ls LastModified Time None Recorded Concern Status LastModified by Organization Details LastModified Time None Recorded Advance Directives Directive None Recorded Payers Encounter Date Sequence Insurance Name Policy Number Policy Quintana Covered Member ID Quintana Member ID Guarantor Name 07/01/2023 1 [facility] PUBLIC PLANS [employer] - TOGETHER (MEDICAID HMO) [id number] Lurdes Sandhu [id number] Lurdes Sandhu Notes Date Note Type Note Provider Name and Address Organization Details Recorded Time 3 text/html Eye problemsReported bypatient.source of patient informationInformation obtained from patient; Patient arrived at Urgent Care ambulatory Location:left Eye Symptoms:sensitivity to light;redness;pain in the eyes;discharge Severity:moderate Onset/Timindays Modifying Factors:nothing gives reliefNotes:?pink eye left. Eyelid redness, itchiness, purulent drainage started yesterday. Anne-Marie Camilo NP [address] [place], [address], [place] - [facility] 07/01/2023 17:29:52 OBGyn Episode No OBEpisode recorded.
--- OUTSIDE RECORDS SUMMARY | 2024-10-22 12:09 | XMS_ITS ---
Author Organization [facility] Address [address] [place] [address] Care Team Providers Care Certified Technician Specialist Name Role Phone Luis Francois MD Primary Care Provider UnavailEnrrique Riggs Jr [phone] REASON FOR VISIT Patient presents today for a screening colon Encounters Encounter Location Date Provider Diagnosis [facility] [address] [place] [address] 06/27/2023 Enrrique Roper Jr PLAN OF TREATMENT No Information
--- OUTSIDE RECORDS SUMMARY | 2024-10-22 12:09 | XMS_ITS ---
Author Organization [facility] Address [address] [place] [address] Care Team Providers Care Bilingual Account Manager Name Role Phone Luis Francois MD Primary Care Provider UnavailEnrrique Riggs Jr [phone] REASON FOR VISIT Pt no showed Encounters Encounter Location Date Provider Diagnosis [facility] [address] [place] [address] 10/29/2023 Enrrique Roper Jr PLAN OF TREATMENT No Information
--- OUTSIDE RECORDS SUMMARY | 2024-10-22 12:10 | XMS_ITS | Patient Health Record ---
Author Organization [facility] Address [address] [place] [address] Care Team Providers Care Semiconductor Bonder Name Role Phone Luis Francois MD Primary Care Provider Enrrique Mcgowan Jr Unavailable [phone] ALLERGIES Allergen (clinical drug ingredient) Drug/Non Drug Allergy documented on EMR Reaction Allergy Type Onset Date Status cough medication (uncoded) Unknown Allergy Active REASON FOR REFERRAL No Information MEDICATIONS Medication SIG (Take, Route, Fr equency, Duration) Notes Start Date End Date Status Omeprazole 20 MG 1 tablet Orally Twic e a day for 30 Active Omeprazole 20 MG 2 tablets Orally Onc e a day for 30 day(s) 10/06/2020 Active Atomoxetine HCl 60 MG Orally Active Methadone HCl 58 mg Active valACYclovir HCl 1 GM Orally PRN Active cloNIDine HCl 0.1 MG 1 tablet at bedtime Orally Once a day for 30 day(s) Active Tylenol prn Active Vitamin D Active Biotin Active Fluticasone Propionate Active Ibuprofen PRN Active IMMUNIZATIONS Vaccine Route Administration Date Status Comme nts Influenza Unknown 07/16/2019 Administered Influenza Unknown 04/10/2019 Refused SOCIAL HISTORY Tobacco Use: Social History Observation Description Date Details (start date - stop date) Former Smoker NA - NA Sex Assigned At : Social History Observation Description Sex Assigned At Unknown Tobacco Use/Smoking Question Answer Notes Patient is a former smoker How long has it been since you last smoked? 1-5 years Alcohol Screen Question Answer Notes Did you have a drink containing alcohol in the p ast year? No Points 0 Interpretation Negative PROBLEMS Problem Type ICD Code Onset Dates Problem Status W/U Status Risk SNOMED Code Notes Problem Gastro-esophagea l reflux disease without esophagitis (K21.9) Active confirmed 811311158 Problem Dysphagia, unspecified type (R13.10) Active confirmed 77100387 Problem Abnormal barium swallow (R93.3) Active confirmed 850172521 Problem H. pylori infection (A04.8) Active confirmed 363692912 Encounters Encounter Location Date Provider Diagnosis [facility] [address] [place] [address] 10/29/2023 Enrrique Roper Jr [facility] [address] [place] [address] 10/29/2023 Enrrique Roper Jr PLAN OF TREATMENT Pending Test Test Name Order Date H PYLORI AG, STOOL 08/09/2020 Future Test Test Name Order Date UPPER GI ENDOSCOPY 05/29/2019 Insurance Providers Payer Name Payer Address Payer Phone Subscriber Number Group Number Insured Name Patient Relationship to Insured Coverage Start Date Coverage End Date [facility] [address] [place] [address] [id number] RUTHY DAMON Self - patient is the insured MEDICAID OF [facility] [address] [place] [address] [id number] RUTHY DAMON Self - patient is the insured MEDICAL (GENERAL) HISTORY Medical History History ICD Code substance abuse, currently in remission chronic sinusitis allergies back pain gastroesophageal reflux dise ase, upper endoscopy 07/31 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 pylori infection and treated Surgical History Surgery Date(Month/Year)
== END 2024-10-19 17:54 | disposition home or self-care (01) ==
PROVIDERS: Emergency Provider Emergency Medicine; PCP Internal Medicine
DX: M54.42 Lumbago with sciatica, left side (principal); M79.605 Pain in left leg; Z79.899 Other long term (current) drug therapy
CPT/HCPCS: 36415; 80053; 85025; 96372; 99284; J1885; J2919

== ENCOUNTER 2024-10-30 10:42 | Outpatient (REF) | payer OTHER, SELFPAY ==
--- NOTE | ~2024-10-30 | XR_ITS ---
EXAMINATION: XR LUMBAR SPINE CLINICAL INFORMATION: Dorsalgia, unspecified M54.9. Evaluate disc spaces. COMPARISON: XR Lumbar spine 09/15/2013 (report only). TECHNIQUE: Three views of the lumbosacral spine. FINDINGS: Normal bony mineralization. No fracture, subluxation, compression deformity, or suspicious bone lesion. There is a mild right convex scoliosis, apex at L2-3. There is a normal lordosis. Alignment is normal in the sagittal plane. Severe degenerative disc changes L5-S1. Discs otherwise appear relatively preserved. Degenerative facet changes present L4-5 and L5-S1. The sacrum and SI joints appear normal. There are no discrete soft tissue abnormalities. XR/XR lumbar spine 2-3V IMPRESSION: 1. No acute findings of the lumbar spine. 2. Mild degenerative spondylosis, most significant at L5-S1. 3. Mild right convex scoliosis. Electronically signed by: Paul Ojeda MD 11/21/2024 08:36 AM [facility] [place] [facility] [place]
== END 2024-10-30 10:43 | disposition home or self-care (01) ==
LOC: HO.HOSX 10:42
PROVIDERS: PCP Internal Medicine; Visit Provider Physical Medicine & Rehabilitation
DX: M51.26 Other intervertebral disc displacement, lumbar region (principal); M51.369 Other intervertebral disc degeneration, lumbar region without mention of lumbar back pain or lower extremity pain; M54.9 Dorsalgia, unspecified; M54.16 Radiculopathy, lumbar region
CPT/HCPCS: 72100

== ENCOUNTER 2024-10-30 10:42 | Outpatient (AMB) | payer OTHER, SELFPAY ==
--- OUTSIDE RECORDS SUMMARY | 2024-10-30 10:44 | XMS_ITS | Data Portability ---
Author Organization [facility] [address] Address [address] [place] [address] Assessment No assessment recorded. Plan of Treatment Reminders Order Date Submit Date Provider Last Modified By Organization Details Last Modified Time Details Appointments None recorded. Lab None recorded. Referral None recorded. Procedures None recorded. Surgeries None recorded. Imaging None recorded. Medication Orders polymyxin B sulfate 10,000 unit-trime thoprim 1 mg/mL eye drops 2022 023 [id number], [address], [place], [id number], 17:18:55 Patient TargetsNo targets recorded. Patient Instructions Encounter Date Encounter Id Patient Instructions Last Modified By Organization Details Last Modified Time 07/01/2023 [id number] eneida: care instructions [email or web address] Not available 07/01/2023 17:19:25 Reason for Referral None Reported. Problems Name Problem SNOMED Code Status Onset Date Resolution Date Notes Provider Name and Address Organization Details Recorded Time Eczema 20868448 Active 2022 FILIPE valdes, PA - [facility] 17:02:27 Attention deficit hyperactivity disorder 906710790 Active 2022 FILIPE valdes, PA - [facility] 3 17:03:02 Herpes simplex type 1 infection 467092916 Active 2022 FIL[facility]des, [facility] - [facility] Name and Address Organization Details Recorded Time 379554 dextromet horphan medicatio n other Not available [...] Updated DateTime 3 163.83 cm 22 kg/m2 04920.0 1 g 19 /min 98 % 98 % 104 /min 97.7 [degF] 105 mm[Hg] 74 mm[Hg] FILIPE JOHNSON - [facility] 3 17:06:00 Social History Question Answer Notes LastModified by Organizat ion Details LastModified Time Tobacco Smoking Status Former Smoker ALEX Doe - [facility] 07/01/2023 17:03:40 What Is Your Level Of Alcohol Consumption? None [email or web address] Information not available 07/01/2023 Do You Or Have You Ever Used E-cigarettes Or Vape? Current User Of Electronic Cigarettes [email or web address] Information not available 07/01/2023 When Did You Quit Smoking? 6-10yearssince lastcigarette [email or web address] Information not available 07/01/2023 Do You Use Any Illicit Or Recreational Drugs? No [email or web address] Information not available 07/01/2023 Have You Recently Traveled Abroad? No [email or web address] Information not available 07/01/2023 Do You Or Have You Ever Used Any Other Forms Of Tobacco Or Nicotine? Yes [email or web address] Information not available 07/01/2023 Sex: Unknown Functional [...] Diagnosis/Indication Diagnosis SNOMED-CT Code Diagnosis ICD10 Code [id number] [place] [address] [facility] [address] [place] [address] 07/01/2023 16:40:33 07/01/2023 17:21:57 Acute conjunctivitis of left eye 4599417738 34335 H10.32 Health Concerns Section Related Observation LastModified by Organization Detai ls LastModified Time None Recorded Concern Status LastModified by Organization Details LastModified Time None Recorded Advance Directives Directive None Recorded Payers Encounter Date Sequence Insurance Name Policy Number Policy Quintana Covered Member ID Quintana Member ID Guarantor Name 07/01/2023 1 [facility] [employer] - TOGETHER (MEDICAID HMO) [id number] Lurdes Sandhu [id number] Lurdes Sandhu Notes Date Note Type [...] Camilo NP [address] [place], [address], [place] - [facility] 07/01/2023 17:29:52 OBGyn Episode No OBEpisode recorded.
--- OUTSIDE RECORDS SUMMARY | 2024-10-30 10:44 | XMS_ITS ---
Author Organization [facility] Address [address] [place] [address] Care Team Providers Care Mold Dresser Name Role Phone Luis Francois MD Primary Care Provider UnavailEnrrique Riggs Jr REASON FOR VISIT Pt no showed Encounters Encounter Location Date Provider Diagnosis [facility] [address] [place] [address] 10/29/2023 Enrrique Roper Jr PLAN OF TREATMENT No Information
--- OUTSIDE RECORDS SUMMARY | 2024-10-30 10:45 | XMS_ITS ---
Author Organization [facility] Address [address] [place] [address] Care Team Providers Care Provider Network Mgr Name Role Phone Luis Francois MD Primary Care Provider UnavailEnrrique Riggs Jr REASON FOR VISIT Patient presents today for a screening colonoscopy Encounters Encounter Location Date Provider Diagnosis [facility] [address] [place] [address] 10/29/2023 Enrrique Roper Jr PLAN OF TREATMENT No Information
--- OUTSIDE RECORDS SUMMARY | 2024-10-30 10:45 | XMS_ITS | Patient Health Record ---
Author Organization [facility] Address [address] [place] [address] Care Team Providers Care Laborer Wrecking And Salvaging Name Role Phone Luis Francois MD Primary Care Provider Enrrique Mcgowan Jr Unavailable [phone] ALLERGIES Allergen (clinical drug ingredient) Drug/Non Drug [...] reflux disease without esophagitis (K21.9) Active confirmed 453075394 Problem Dysphagia, unspecified type (R13.10) Active confirmed 74668659 Problem Abnormal barium swallow (R93.3) Active confirmed 747383324 Problem H. pylori infection (A04.8) Active confirmed 464613706 PLAN OF TREATMENT Pending Test Test Name Order Date H PYLORI AG, STOOL 08/09/2020 Future Test Test Name Order Date UPPER GI ENDOSCOPY 05/29/2019 Insurance Providers Payer Name Payer Address Payer Phone Subscriber Number Group Number Insured Name Patient Relationship to Insured Coverage Start Date Coverage End Date [facility] [address] [place] [phone] [id number] RUTHY DAMON Self - patient is the insured MEDICAID OF [facility] [address] [place] [address] [id number] RUTHY DAMON Self - patient is the insured MEDICAL (GENERAL) HISTORY Medical History History ICD Code substance abuse, currently in remission chronic sinusitis allergies back pain gastroesophageal reflux dise ase, upper endoscopy 07/31 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 pylori infection and treated Surgical History Surgery Date(Month/Year)
--- OUTSIDE RECORDS SUMMARY | 2024-10-30 10:45 | XMS_ITS ---
Author Organization [facility] Address [address] [place] [address] Care Team Providers Care Veneer Manufacturer Name Role Phone Luis Francois MD Primary Care Provider UnavailEnrrique Riggs Jr REASON FOR VISIT Patient presents today for a screening colon Encounters Encounter Location Date Provider Diagnosis [facility] [address] [place] [address] 06/27/2023 Enrrique Roper Jr PLAN OF TREATMENT No Information
--- NOTE | 2024-10-30 10:51 | A.OFFVIS_ITS ---
Vital Signs 10/30/24 10:52 Height 5 ft 5 in Weight 138 lb BMI 23.0 Intake Visit Reasons: [employer]OURNEY[employer]KER, Sciatica, SI joint disf. flare up 2 weeks ago Intake Note: Lurdes 44 yr old female presents today for new patient visit for her sciatica pain. States she is experiencing started about 3 weeks ago. NO injury or falls she can recall. States her pain has been constant and has not been able to bend down. Difficulty using the toilet. She is not able to sit properly and has radiating pain to her knee. Hx of back pain and degenerative disease, bulging discs and SI joint disfunction. Also states her knee has given out about 3-4 times in the last 2 weeks. MRI done more than 10 yearss ago and doesnt have the report or CD. Numbness in her entire left leg. Allergies dextromethorphan Allergy (Verified 10/30/24 11:01) Unknown Medication List - Last Reconciled 10/30/24 by Lynette Mccracken MD atomoxetine (Strattera) 60 mg PO DAILY clonidine HCl 0.1 mg PO DAILY cyclobenzaprine 10 mg PO TID PRN dexamethasone 4 mg PO BID fluticasone propionate 50 mcg/actuation 2 sprays intranasal DAILY nitrofurantoin monohyd/m-cryst 100 mg (Macrobid) 100 mg PO Q12H 5 days oxycodone-acetaminophen 5-325 mg (Percocet) 1 tab PO Q4H PRN valacyclovir 1,000 mg PO BID HPI Comments Details: Seen in ER 10/19/2024 complaining of left hip pain. Prescribed dexamethasone, Flexeril and Percocet. No imaging done. Chronic back, would flare once or twice a month, knows what to do to make it better. This is the first episode that has lasted longer and affected her functionally. Was having muscle spasms night before then woke up with severe pain in the mor anastasiya. Can't sit on left side. Numb down to calf, not the toes. Left knee gives out but no pain on the knee. Treatment done so far: solumedrol IM, dexamethasone for 4 days - no relief ibuprofen 600mg every 4-6 hours History of opioid abuse, on recovery. 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 Patient was appropriately conversant and oriented. Good historian. MSK: No specific abnormalities found on inspection of the spine and all extremities. No pain with palpation over the lumbar area. No SI joint tenderness. Lumbar ROM was full. Bilateral hip, knee and ankle ROM WNL. No ligamentous laxity or crepitance. No increased effusion. Straight-leg raising test positive left. FABERE test could not do due to pain. Neurological: Weak left hip flexors, with pain, 4/5. Knee extensor and dorsiflexion strong 5/5. Cummins?s negative bilaterally. Babinski was down going bilaterally. Clonus was negative. Gait is antalgic without loss of balance. 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 Lumbar x-rays today. Referring to PT. Starting on gabapentin, to gradually go up to 300 mg t.i.d.. Instructions and side effects discussed. Ultimately we need to visualize if there is a disc herniation with an MRI. It would be reasonable to obtain further imaging such as MRI. An MRI would help rule out any serious condition, guide treatment and assess prognosis for recovery. Specifically ruling out left-sided disc herniation. Assessment and plan discussed with patient, and patient was agreeable. All questions were answered thoroughly. Follow up after MRI. Lynette Mccracken MD, ELKE Board Certified, [place] [employer] Medicine and Rehabilitation (ABPMR) Board Certified, [place] Board of Electrodiagnostic Medicine (ABEM) Orders: Orders XR lumbar spine 2-3V Today M51.26 - Other intervertebral disc displacement, lumbar region, M51.369 - Other intervertebral disc degeneration, lumbar region without mention of lumbar back pain or lower extremity pain, M54.16 - Radiculopathy, lumbar region, M54.9 - Dorsalgia, unspecified MR lumbar spine wo con Today M51.26 - Other intervertebral disc displacement, lumbar region, M51.369 - Other intervertebral disc degeneration, lumbar region without mention of lumbar back pain or lower extremity pain, M54.16 - Radiculopathy, lumbar region PT Evaluation and Treatment Today M51.26 - Other intervertebral disc displacement, lumbar region, M51.369 - Other intervertebral disc degeneration, lumbar region without mention of lumbar back pain or lower extremity pain, M54.16 - Radiculopathy, lumbar region Medications: New gabapentin start with 300mg at night for one week; then go up to 300mg BID for one week; then go up to 300mg TID 300 mg PO TID 90 caps 3RF Coding Level of Care Code New Pt Level 4 (47829) Diagnoses Lumbar radiculopathy M54.16 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
[2024-10-30 10:52] VITALS: BMI 23.0
== END 2024-10-30 11:18 | disposition home or self-care (01) ==
PROVIDERS: PCP Internal Medicine; Visit Provider Physical Medicine & Rehabilitation
DX: M54.16 Radiculopathy, lumbar region (principal); M51.369 Other intervertebral disc degeneration, lumbar region without mention of lumbar back pain or lower extremity pain; M51.26 Other intervertebral disc displacement, lumbar region
CPT/HCPCS: 99204

== ENCOUNTER → 2024-10-30 11:29 | Outpatient (BNV) | payer OTHER, SELFPAY | PROVIDERS: PCP Internal Medicine; Visit Provider Radiology Diagnostic Radiology | DX: M47.816 Spondylosis without myelopathy or radiculopathy, lumbar region (principal); M41.9 Scoliosis, unspecified | CPT/HCPCS: 72100 ==

== ENCOUNTER → 2024-12-03 10:03 | Outpatient (BNV) | payer OTHER, SELFPAY | PROVIDERS: PCP Internal Medicine; Visit Provider Radiology Diagnostic Radiology | DX: M54.16 Radiculopathy, lumbar region (principal) | CPT/HCPCS: 72148 ==

== ENCOUNTER 2024-12-03 10:09 | Outpatient (REF) | payer OTHER, SELFPAY ==
--- NOTE | ~2024-12-03 | MR_ITS ---
CLINICAL HISTORY: M54.16 - Radiculopathy, lumbar region MR lumbar spine without gadolinium Comparison: None Findings: No acute fracture . Fatty infiltration of the majority of the visualized sacrum.. Lower lumbar spine disc dehydration and severe L5/S1 disc narrowing. Conus terminates at L1. Unremarkable appearance of the visualized cord and conus medullaris. L5/S1: Grade 1 retrolisthesis and pseudodisc bulge associated with lpvx-lq-bpgxwunr left more than right neural foraminal stenosis. L4/L5: Mildly superiorly migrating left lateral recess/left neural foraminal disc herniation measuring up to 3 mm in AP dimension compresses the neighboring exiting left L4 nerve and causes severe stenosis of the superior aspect of the left lateral recess. L3/L4: Mildly superiorly migrating predominantly left neural foraminal disc herniation measuring up to 6 mm in AP dimension compresses the neighboring exiting left L3 nerve root, and is associated with xkqw-we-wusnluxo focal stenosis of the left lateral recess. T12/L1 to L1/L2: No evidence of significant central canal or neural foraminal stenosis. IMPRESSION: L3/L4: Mildly superiorly migrating predominantly left neural foraminal disc herniation measuring up to 6 mm in AP dimension compresses the neighboring exiting left L3 nerve root, and is associated with hsis-mh-oiazscrd focal stenosis of the left lateral recess. L4/L5: Mildly superiorly migrating left lateral recess/left neural foraminal disc herniation measuring up to 3 mm in AP dimension compresses the neighboring exiting left L4 nerve and causes severe stenosis of the superior aspect of the left lateral recess. This document has been electronically signed by: Connie Montiel MD on 12/03/2024 12:22:56
--- OUTSIDE RECORDS SUMMARY | 2024-12-03 11:09 | XMS_ITS | Data Portability ---
Author Organization [facility] [address] Address [address] [place] [address] Assessment No assessment recorded. Plan of Treatment Reminders Order Date Submit Date Provider Last Modified By Organization Details Last Modified Time Details Appointments None recorded. Lab None recorded. Referral None recorded. Procedures None recorded. Surgeries None recorded. Imaging None recorded. Medication Orders polymyxin B sulfate 10,000 unit-trime thoprim 1 mg/mL eye drops 2022 023 [id number], [address] [place], [place], [id number], 17:18:55 Patient TargetsNo targets recorded. Patient Instructions Encounter Date Encounter Id Patient Instructions Last Modified By Organization Details Last Modified Time 07/01/2023 [id number] [email or web address]: care instructions [email or web address] Not available 07/01/2023 17:19:25 Reason for Referral None Reported. Problems Name Problem SNOMED Code Status Onset Date Resolution Date Notes Provider Name and Address Organization Details Recorded Time Eczema 82199215 Active 2022 FILIPE valdes, [place] - [facility] 17:02:27 Attention deficit hyperactivity disorder 518023176 Active 2022 FILIPE valdes, [place] - [facility] 3 17:03:02 Herpes simplex type 1 infection 404593810 Active 2022 [facility] Name and Address Organization Details Recorded Time 048955 dextromet horphan medicatio n other Not available Not available 07/01/2023 3289 RxNorm feel s jana FILIPE valdes [place] - [facility] 17:01:50 Medications Name Sig Start Date Stop [...] Not Available Vitals Date Recorded Body height Provider Name an d Address Organization Details Last Updated DateTime 07/01/2023 163.83 cm FILIPE ROCHA PA - [facility] 0 07/01/2023 16:59:52 Date Recorded Body mass index (BMI) Body weight Provider Name and Address Organization Details Last Updated DateTime 07/01/2023 22 kg/m2 38730.01 g FILIPE ROCHA PA - [facility] 07/01/2023 16:59:54 Date Recorded Pain severity - 0-10 verbal numeric rating [Score] - Reported Provider Name and Address Organization Details Last Updated DateTime 07/01/2023 0 FILIPE ROCHA PA - [facility] 0 07/01/2023 16:59:58 Date Recorded Respiratory rate Provider Name a nd Address Organization Details Last Updated DateTime 07/01/2023 19 /min FILIPE ROCHA PA - [facility] 0 07/01/2023 17:05:24 Date Recorded Oxygen saturation Oxygen saturation in Arterial blood by Pulse oximetry Provider Name and Address Organization Details Last Updated DateTime 07/01/2023 98 % 98 % FILIPE ROCHA PA - [facility] 07/01/2023 17:06:03 Date Recorded Heart rate Provider Name an d Address Organization Details Last Updated DateTime 07/01/2023 104 /min FILIPE ROCHA PA - [facility] 0 07/01/2023 17:06:05 Date Recorded Body temperature Provider Name a nd Address Organization Details Last Updated DateTime 07/01/2023 97.7 [degF] FILIPE ROCHA PA - [facility] 07/01/2023 17:06:10 Date Recorded Systolic blood pressure Diastolic blood pressure Provider Name and Address Organization Details Last Updated DateTime 07/01/2023 105 mm[Hg] 74 mm[Hg] FILIPE ROCHA PA - [facility] 07/01/2023 17:06:00 Social History Question Answer Notes LastModified by Organizat ion Details LastModified Time Tobacco Smoking Status Former Smoker FILIPE HECTORROSE valdes, [place] - [facility] 07/01/2023 17:03:40 What Is Your Level Of Alcohol Consumption? None [email or web address] Information not available 07/01/2023 Do You Or Have You Ever Used E-cigarettes Or Vape? Current User Of Electronic Cigarettes [email or web address] Information not available 07/01/2023 When Did You Quit Smoking? 6-10yearssince lastcigarette [email or web address] Information not available 07/01/2023 Do You Use Any Illicit Or Recreational Drugs? No [email or web address] Information not available 07/01/2023 Have You Recently Traveled Abroad? No [email or web address] Information not available 07/01/2023 Do You Or Have You Ever Used Any Other Forms Of Tobacco Or Nicotine? Yes Information not available 07/01/2023 Sex: Unknown Functional [...] Diagnosis/Indication Diagnosis SNOMED-CT Code Diagnosis ICD10 Code Diagnosis Note [id number] Anne-Marie Camilo, MODELING TEACHER [address] [facility] [address] [place] [address] 07/01/2023 16:40:33 07/01/2023 17:21:57 Acute conjunctivitis of left eye 2302411363 63205 H10.32 Based on your presentati on and exam, you are diagnosed with Conjunctiv itis. I am going to cover you for a bacterial infection in the eye with antibiotic eye drops. Sometimes these symptoms can be caused by a virus or allergies. Viral infections with spontaneou sly resolve after 7-10 days and do not require treatment. If it is an allergy cause sometime oral allergy medication s will help with these symptoms or a allergy eye drop that can be purchased OTC. The following are my recommenda tions to help with your symptoms and this diagnosis: 1. Do not rub your eyes this can cause it to spread or damage the cornea of your eye.2. Wash surfaces such as cell phones, remotes, door knob frequently , because this is how it is transmitte d to others.3. Do not wear contacts for at least 1 week if you have contacts.4 . No makeup5. You can take Ibuprofen or Tylenol for discomfort if you are not allergic to them.6. If you get lubricatin g eye drops and put them in the refrigerat or - this can help with itching and discomfort . You should be seen again if you develop any of the following symptoms1. Eye pain or pressure behind the eye.2. Redness or significan t swelling of the eyelid or around the eye3. Headache4. Fever > 100.55. No improvemen t in current symptoms in the next 1 week. Thank you for using [facility] today, please feel free to contact us with any questions or concerns. Health Concerns Section Related Observation LastModified by Organization Detai ls LastModified Time None Recorded Concern Status LastModified by Organization Details LastModified Time None Recorded Advance Directives Directive None Recorded Payers Encounter Date Sequence Insurance Name Policy Number Policy Quintana Covered Member ID Quintana Member ID Guarantor Name 07/01/2023 1 [facility] [employer] - TOGETHER (MEDICAID HMO) [id number] Lurdes Sandhu [id number] Lurdes Sandhu Notes Date Note Type [...] Camilo NP [address] [place], [address], [place] - [facility] 07/01/2023 17:29:52 OBGyn Episode No OBEpisode recorded.
== END 2024-12-03 10:10 | disposition home or self-care (01) ==
LOC: HO.MRI 10:09
PROVIDERS: PCP Internal Medicine; Visit Provider Physical Medicine & Rehabilitation
DX: M54.16 Radiculopathy, lumbar region (principal); M51.369 Other intervertebral disc degeneration, lumbar region without mention of lumbar back pain or lower extremity pain; M51.26 Other intervertebral disc displacement, lumbar region
CPT/HCPCS: 72148

== ENCOUNTER 2024-12-05 09:04 | Outpatient (AMB) | payer OTHER, SELFPAY ==
--- NOTE | 2024-12-05 09:05 | MHC.OFFVIS ---
Intake Visit Reasons: TH-MRI Lumbar spine review Intake Note: Lurdes 44 yr old female presents today for a telehealth visit for her MRI review of lumbar spine. Allergies dextromethorphan Allergy (Verified 12/05/24 09:06) Unknown Medication List - Last Reconciled 12/05/24 by Lynette Mccracken MD atomoxetine (Strattera) 60 mg PO DAILY clonidine HCl 0.1 mg PO DAILY cyclobenzaprine 10 mg PO TID PRN dexamethasone 4 mg PO BID fluticasone propionate 50 mcg/actuation 2 sprays intranasal DAILY gabapentin 300 mg PO TID nitrofurantoin monohyd/m-cryst 100 mg (Macrobid) 100 mg PO Q12H 5 days valacyclovir 1,000 mg PO BID HPI Comments Details: Seen in ER 10/19/2024 complaining of left hip pain. Prescribed dexamethasone, Flexeril and Percocet. No imaging done. Chronic back, would flare once or twice a month, knows what to do to make it better. This is the first episode that has lasted longer and affected her functionally. Was having muscle spasms night before then woke up with severe pain in the morning. Can't sit on left side. Numb down to calf, not the toes. Left knee gives out but no pain on the knee. Treatment done so far: solumedrol IM, dexamethasone for 4 days - no relief ibuprofen 600mg every 4-6 hours History of opioid abuse, on recovery. Today is a telehealth for MRI review. Patient reports that she is able to stand longer. Able to bend a bit better but still with radiation to left leg. Unable to sit more than 1-2 minutes. Today she had 20 minutes of bilateral leg radicular pain. Denies bladder or bowel changes. Numbness down the left leg. Had some sensation of water on left knee. No weakness in his related to pain. No footdrop. Started physical therapy 2 weeks ago. Been off work since I saw her. 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 Fatty infiltration of the majority of the visualized sacrum.. Lower lumbar spine disc dehydration and severe L5/S1 disc narrowing. Conus terminates at L1. Unremarkable appearance of the visualized cord and conus medullaris. L5/S1: Grade 1 retrolisthesis and pseudodisc bulge associated with jqua-sk-nzllgpwk left more than right neural foraminal stenosis. L4/L5: Mildly superiorly migrating left lateral recess/left neural foraminal disc herniation measuring up to 3 mm in AP dimension compresses the neighboring exiting left L4 nerve and causes severe stenosis of the superior aspect of the left lateral recess. L3/L4: Mildly superiorly migrating predominantly left neural foraminal disc herniation measuring up to 6 mm in AP dimension compresses the neighboring exiting left L3 nerve root, and is associated with eewu-zj-msrxhbxn focal stenosis of the left lateral recess. T12/L1 to L1/L2: No evidence of significant central canal or neural foraminal stenosis. IMPRESSION: L3/L4: Mildly superiorly migrating predominantly left neural foraminal disc herniation measuring up to 6 mm in AP dimension compresses the neighboring exiting left L3 nerve root, and is associated with pskx-yc-wmbhvswe focal stenosis of the left lateral recess. L4/L5: Mildly superiorly migrating left lateral recess/left neural foraminal disc herniation measuring up to 3 mm in AP dimension compresses the neighboring exiting left L4 nerve and causes severe stenosis of the superior aspect of the left lateral recess. 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 We discussed treatment options including further physical therapy, injections and/or referral to neuro spine. She will continue PT. I will refer her to pain management for L4-5 epidural injection. I will follow-up with her after the injection. Last work note through 12/22/2024, on which date I have a follow-up appointment scheduled with her. Assessment and plan discussed with patient, and patient was agreeable. All questions were answered thoroughly. Total of 30 min spent today including chart review, results review, history taking, physical examination, discussion of assessment and plan, and coordination of care. 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
--- OUTSIDE RECORDS SUMMARY | 2024-12-05 09:34 | XMS_ITS | Data Portability ---
Author Organization [facility] [address] Address [address] [place] [address] Assessment No assessment recorded. Plan of Treatment Reminders Order Date Submit Date Provider Last Modified By Organization Details Last Modified Time Details Appointments None recorded. Lab None recorded. Referral None recorded. Procedures None recorded. Surgeries None recorded. Imaging None recorded. Medication Orders polymyxin B sulfate 10,000 unit-trime thoprim 1 mg/mL eye drops 2022 023 [id number], [address] [place] [address], [place], [phone], 17:18:55 Patient TargetsNo targets recorded. Patient Instructions Encounter Date Encounter Id Patient Instructions Last Modified By Organization Details Last Modified Time 07/01/2023 [id number] [email or web address]: care instructions [email or web address] Not available 07/01/2023 17:19:25 Reason for Referral None Reported. Problems Name Problem SNOMED Code Status Onset Date Resolution Date Notes Provider Name and Address Organization Details Recorded Time Eczema 91116296 Active 2022 FILIPE valdes, [place] - [facility] 3 17:02:27 Attention deficit hyperactivity disorder 570455688 Active 2022 FILIPE valdes, [place] - [facility] 3 17:03:02 Herpes simplex type 1 infection 661787636 Active 2022 FILIPE valdes, [place] - [facility] 3 17:03:24 Problem Notes None recorded. Procedures Surgical [...] Name and Address Organization Details Recorded Time 625345 dextromet horphan medicatio n other Not available [...] Details Last Updated DateTime 07/01/2023 22 kg/m2 71405.01 g FILIPE ROCHA PA - [facility] [...] Is Your Level Of Alcohol Consumption? None [email or web address] Information not available 07/01/2023 Do You Or Have You Ever Used E-cigarettes Or Vape? Current User Of Electronic Cigarettes [email or web address] Information not available 07/01/2023 When Did You Quit Smoking? 6-10yearssince lastcigarette [email or web address] Information not available 07/01/2023 Do You Use Any Illicit Or Recreational Drugs? No [email or web address] Information not available 07/01/2023 Have You Recently Traveled Abroad? No [email or web address] Information not available 07/01/2023 Do You Or Have You Ever Used Any Other Forms Of Tobacco Or Nicotine? Yes [email or web address] Information not available 07/01/2023 Sex: Unknown Functional [...] SNOMED-CT Code Diagnosis ICD10 Code Diagnosis Note [id number] Anne-Marie Camilo, [employer] ADVISOR [address] [facility] [address] [place] [address] 07/01/2023 16:40:33 07/01/2023 17:21:57 Acute conjunctivitis of left eye 6898592954 17655 H10.32 Based on your presentati on and [...] next 1 week. Thank you for using [facility] today, please feel free to contact us with any questions or concerns. Health Concerns Section Related Observation LastModified by Organization Detai ls LastModified Time None Recorded Concern Status LastModified by Organization Details LastModified Time None Recorded Advance Directives Directive None Recorded Payers Encounter Date Sequence Insurance Name Policy Number Policy Qiuntana Covered Member ID Quintana Member ID Guarantor Name 07/01/2023 1 [facility] [employer] - TOGETHER (MEDICAID HMO) [id number] Lurdes Sandhu [id number] Lurdes Sandhu Notes Date Note Type [...] Camilo NP [address] [place], [address], [place] - [facility] 07/01/2023 17:29:52 OBGyn Episode No OBEpisode recorded.
== END 2024-12-05 09:29 | disposition home or self-care (01) ==
LOC: HO.HOS 09:04
PROVIDERS: PCP Internal Medicine; Visit Provider Physical Medicine & Rehabilitation
DX: M51.369 Other intervertebral disc degeneration, lumbar region without mention of lumbar back pain or lower extremity pain (principal); M51.26 Other intervertebral disc displacement, lumbar region; M54.16 Radiculopathy, lumbar region
CPT/HCPCS: 98014

== ENCOUNTER → 2024-12-05 09:04 | Outpatient (BNVA) | payer OTHER, SELFPAY | PROVIDERS: PCP Internal Medicine; Visit Provider Physical Medicine & Rehabilitation ==

== ENCOUNTER 2024-12-30 15:07 | Outpatient (RCR) | payer OTHER, SELFPAY ==
--- NOTE | 2024-11-24 10:46 | MHC.PT.EP ---
[facility] [place] Office [place] Office [place] Office [address] Ariella Sotelo [address] [phone] F: [phone] F: [phone] F: [phone] F: [phone] Physical Therapy Plan of Care Date of Evaluation: 11/24/24 Date of Surgery: n/a Diagnosis: Radiculopathy, lumbar region Other intervertebral disc degeneration, lumbar region without mention of lumbar back pain or lower extremity pain Assessment: Pt is a pleasant 44yo F who presents to PT with low back pain radiating into LLE. She presents to PT with current impairments in pain, radicular symptoms, decreased ROM, decreased core stabilization, decreased hip/glute strength, soft tissue restrictions, impaired posture, and impaired body mechanics. She is limited functionally by bending and sitting. Her signs and symptoms may be consistent with acute disc herniation. She is a good candidate for skilled PT in order to address current impairments to facilitate return to PLOF. She is recommended to be seen 2x/week for 4 weeks and will be reassessed Frequency and Duration: The patient will be seen 2x/week for 4 weeks Short Term Goals: Pt will be I with HEP to promote self management of symptoms Pt will have centralization of symptoms Pt will demonstrate improvements in postural awareness and body mechanics throughout the day Dental Therapist Goals: Pt will demonstrate ability to squat and hop picker object from the floor with proper body mechanics and minimal to no pain Pt will tolerate prolonged sitting > 1 hour with improved posture and minimal to no pain Pt will demonstrate improvements in function as evidenced by statistically significant improvement in Modified Oswestry Low Back Pain Disability Index Questionnaire Treatment Plan: Modalities to reduce pain, spasms and effusion. Manual therapy to restore motion and function. Therapeutic exercise to improve strength and flexibility. Neuromuscular re-education for posture and balance. Therapeutic activities to return to functional activities of daily living. Electronically signed by: Gabrielle Coleman, PT, DPT Please sign and return to therapist. Thank you for your referral.
--- NOTE | 2025-01-27 11:51 | MHC.PT.DC ---
[facility] [place] Office [place] [facility] [place] [address] Jose Cruz Sotelo [address] [phone] F: [phone] F: [phone] F: [phone] F: [phone] Physical Therapy Discharge Report Diagnosis: Radiculopathy, lumbar region Other intervertebral disc degeneration, lumbar region without mention of lumbar back pain or lower extremity pain Date of Surgery: n/a Date of Evaluation: 11/24/24 Date of Discharge: 01/27/25 Treatments to Date: 7 Cancellations to Date: 5 No Shows to Date: 2 Discharge Status: Visit Non-compliance Discharge Summary: Pt was seen for PT from 11/24/24-12/30/24. Her last attended appointment was 12/30/24 and she missed her last 3 scheduled appointments. She had 5 cancellations and 2 no show appointments since SOC. She is being D/C from skilled PT per [facility] attendance policy and visit non compliance. Pt current level of function unknown at this time Electronically signed by: Gabrielle Coleman, PT, DPT Please sign and return to therapist. Thank you for your referral.
== END 2025-01-27 11:51 | disposition home or self-care (01) ==
LOC: HO.PT 15:07
PROVIDERS: PCP Internal Medicine; Visit Provider Physical Medicine & Rehabilitation
DX: M54.16 Radiculopathy, lumbar region (principal); M51.369 Other intervertebral disc degeneration, lumbar region without mention of lumbar back pain or lower extremity pain; M51.26 Other intervertebral disc displacement, lumbar region
CPT/HCPCS: 97110; 97140; 97161

== ENCOUNTER 2025-01-01 06:06 | Outpatient (REF) | payer OTHER, SELFPAY ==
--- OUTSIDE RECORDS SUMMARY | 2025-01-01 06:09 | XMS_ITS ---
Author Organization [facility] Address [address] [place] [address] Care Team Providers Care Collection Officer Name Role Phone Luis Francois MD Primary Care Provider UnavailEnrrique Riggs Jr REASON FOR VISIT Pt no showed Encounters Encounter Location Date Provider Diagnosis [facility] [address] [place] [address] 10/29/2023 Enrrique Roper Jr PLAN OF TREATMENT No Information
--- OUTSIDE RECORDS SUMMARY | 2025-01-01 06:09 | XMS_ITS | Patient Health Record ---
Author Organization [facility] Address [address] [place] [address] Care Team Providers Care Head Of Integrated Media Name Role Phone Luis Francois MD Primary Care Provider Enrrique Mcgowan Jr Unavailable [phone] ALLERGIES Allergen (clinical drug ingredient) Drug/Non Drug [...] reflux disease without esophagitis (K21.9) Active confirmed 838117681 Problem Dysphagia, unspecified type (R13.10) Active confirmed 08845488 Problem Abnormal barium swallow (R93.3) Active confirmed 979058435 Problem H. pylori infection (A04.8) Active confirmed 991509864 PLAN OF TREATMENT Pending Test Test Name Order Date H PYLORI AG, STOOL 08/09/2020 Future Test Test Name Order Date UPPER GI ENDOSCOPY 05/29/2019 Insurance Providers Payer Name Payer Address Payer Phone Subscriber Number Group Number Insured Name Patient Relationship to Insured Coverage Start Date Coverage End Date [facility] [address] [place] [phone] [id number] RUTHY DAMON Self - patient is the insured MEDICAID OF [facility] [address] [place] [phone] [id number] RUTHY DAMON Self - patient is the insured MEDICAL (GENERAL) HISTORY Medical History History ICD Code substance abuse, currently in remission chronic sinusitis allergies back pain gastroesophageal reflux dise ase, upper endoscopy 07/31 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 pylori infection and treated Surgical History Surgery Date(Month/Year)
--- OUTSIDE RECORDS SUMMARY | 2025-01-01 06:09 | XMS_ITS | Data Portability ---
Author Organization [facility] [address] Address [address] [place] [address] Assessment No assessment recorded. Plan of Treatment Reminders Order Date Submit Date Provider Last Modified By Organization Details Last Modified Time Details Appointments None recorded. Lab None recorded. Referral None recorded. Procedures None recorded. Surgeries None recorded. Imaging None recorded. Medication Orders polymyxin B sulfate 10,000 unit-trime thoprim 1 mg/mL eye drops 2022 023 [id number], [address] [place], [place], [phone], 17:18:55 Patient TargetsNo targets recorded. Patient Instructions Encounter Date Encounter Id Patient Instructions Last Modified By Organization Details Last Modified Time 07/01/2023 [id number] [email or web address]: care instructions [email or web address] Not available 07/01/2023 17:19:25 Reason for Referral None Reported. Problems Name Problem SNOMED Code Status Onset Date Resolution Date Notes Provider Name and Address Organization Details Recorded Time Eczema 44907985 Active 2022 FILIPE valdes, [place] - [facility] 17:02:27 Attention deficit hyperactivity disorder 665717001 Active 2022 FILIPE valdes, [place] - [facility] 3 17:03:02 Herpes simplex type 1 infection 171889068 Active 2022 [facility] Name and Address Organization Details Recorded Time 692122 dextromet horphan medicatio n other Not available Not available 07/01/2023 3289 RxNorm feel s jana FILIPE valdes PA - [facility] 3 17:01:50 Medications Name [...] height Body mass index (BMI) Body weight Pain severity - 0-10 verbal numeric rating [Score] - Reported Respiratory rate Oxygen saturation Oxygen saturation in Arterial blood by Pulse oximetry Heart rate Body temperature Systolic blood pressure Diastolic blood pressure Provider Name and Address Organization Details Last Updated DateTime 3 163.83 cm 22 kg/m2 39210.0 1 g 0 19 /min 98 % 98 % 104 /min 97.7 [degF] 105 mm[Hg] 74 mm[Hg] FILIPE ROCHA PA - [facility] 17:06:00 Social History Question Answer Notes LastModified by Organizat ion Details LastModified Time Tobacco Smoking Status Former Smoker FILIPE ALEX Mag[place] [facility] 07/01/2023 17:03:40 What Is Your Level Of Alcohol Consumption? None [email or web address] Information not available 07/01/2023 Do You Or Have You Ever Used E-cigarettes Or Vape? Current User Of Electronic Cigarettes [email or web address] Information not available 07/01/2023 When Did You Quit Smoking? 6-10yearssince lastcigarette Information not available 07/01/2023 Do You Use Any Illicit Or Recreational Drugs? No [email or web address] Information not available 07/01/2023 Have You Recently Traveled Abroad? No [email or web address] Information not available 07/01/2023 Do You Or Have You Ever Used Any Other Forms Of Tobacco Or Nicotine? Yes [email or web address] Information not available 07/01/2023 Sex: Unknown Functional [...] SNOMED-CT Code Diagnosis ICD10 Code Diagnosis Note [id number] Anne-Marie Camilo, JENNIFER [address] [facility] [address] [place] [address] 07/01/2023 16:40:33 07/01/2023 17:21:57 Acute conjunctivitis of left eye 9660097312 30586 H10.32 Based on your presentati on and [...] next 1 week. Thank you for using [facility] today, please feel free to contact us with any questions or concerns. Health Concerns Section Related Observation LastModified by Organization Detai ls LastModified Time None Recorded Concern Status LastModified by Organization Details LastModified Time None Recorded Advance Directives Directive None Recorded Payers Encounter Date Sequence Insurance Name Policy Number Policy Quintana Covered Member ID Quintana Member ID Guarantor Name 07/01/2023 1 [facility] [employer] - TOGETHER (MEDICAID HMO) [id number] Lurdes Sandhu [id number] Lurdes Sandhu Notes Date Note Type Note Provider Name and Address Organization Details Recorded Time 3 text/html Eye problemsReported bypatient.source of patient informationInformation obtained from patient; Patient arrived at Urgent Care ambulatory Location:left Eye Symptoms:sensitivity to light;redness;pain in the eyes;discharge Severity:moderate Onset/Timindays Modifying Factors:nothing gives reliefNotes:?pink eye left. Eyelid redness, itchiness, purulent drainage started yesterday. Anne-Marie Camilo NP [address] [place], [address], [place] - [facility] 07/01/2023 17:29:52 OBGyn Episode No OBEpisode recorded.
--- OUTSIDE RECORDS SUMMARY | 2025-01-01 06:09 | XMS_ITS ---
Author Organization [facility] Address [address] [place] [address] Care Team Providers Care Assistant Shift Supervisor Name Role Phone Luis Francois MD Primary Care Provider UnavailEnrrique Riggs Jr REASON FOR VISIT Patient presents today for a screening colonoscopy Encounters Encounter Location Date Provider Diagnosis [facility] [address] [place] [address] 10/29/2023 Enrrique Roper Jr PLAN OF TREATMENT No Information
== END 2025-01-01 06:07 | disposition home or self-care (01) ==
LOC: CF 06:06
PROVIDERS: Visit Provider Internal Medicine
DX: Z13.89 Encounter for screening for other disorder (principal)

== ENCOUNTER 2025-01-15 06:23 | Outpatient (REF) | payer OTHER, SELFPAY ==
--- NOTE | ~2025-01-15 | FL_ITS ---
EXAMINATION: FL GUIDANCE ONLY HISTORY: M54.16 - Radiculopathy, lumbar region COMPARISON: None available. TECHNIQUE: Fluoroscopy time: 0.2 minutes. Cumulative Dose: 7.88 mGy. DAP: 0.0629 mGym2 Images: 5. FINDINGS: Images demonstrate a needle and contrast material in the region of the left L4-5 facet joint. FL/FL guidance in treatment room IMPRESSION: Fluoroscopy during procedure. Please see procedure report for additional information. Electronically signed by: Talat Ojeda MD 01/19/2025 09:06 AM EDT
--- OUTSIDE RECORDS SUMMARY | 2025-01-15 06:26 | XMS_ITS | Patient Health Record ---
Author Organization [facility] Address [address] [place] [address] Care Team Providers Care Sales Account Director Name Role Phone Luis Francois MD Primary Care Provider Enrrique Mcgowan Jr Unavailable [phone] Allergies Allergen (clinical drug ingredient) Drug/Non Drug Allergy documented on EMR Reaction Allergy Type Onset Date Status cough medication (uncoded) Unknown Allergy Active Reason For Referral No Information Medications Medication SIG (Take, Route, Fr equency, Duration) [...] Active Fluticasone Propionate Active Ibuprofen PRN Active Immunizations Vaccine Route Administration Date Status Comme nts Influenza Unknown 07/16/2019 Administered Influenza Unknown 04/10/2019 Refused Social History Tobacco Use: Social History Observation Description Date Details (start date - stop date) Former Smoker NA - NA Tobacco Use/Smoking Question Answer Notes Patient is a former smoker How long has it been since you last smoked? 1-5 years Alcohol Screen Question Answer Notes Did you have a drink containing alcohol in the p ast year? No Points 0 Interpretation Negative Problems Problem Type SNOMED Code ICD Code Onset Dates Problem Status W/U Status Risk Notes Problem 675919268 Gastro-esophagea l reflux disease without esophagitis (K21.9) Active confirmed Problem 55202282 Dysphagia, unspecified type (R13.10) Active confirmed Problem 909198964 Abnormal barium swallow (R93.3) Active confirmed Problem 933946228 H. pylori infection (A04.8) Active confirmed Plan Of Treatment Pending Test Test Name Order Date H PYLORI AG, STOOL 08/09/2020 Future Test Test Name Order Date UPPER GI ENDOSCOPY 05/29/2019 Insurance Providers Payer Name Payer Address Payer Phone Subscriber Number Group Number Insured Name Patient Relationship to Insured Coverage Start Date Coverage End Date [facility] [address] [place] [phone] [id number] RUTHY DAMON Self - patient is the insured MEDICAID OF [facility] [address] [facility] [place] [phone] [id number] RUTHY DAMON Self - patient is the insured Medical (General) History Medical History History ICD Code substance abuse, currently in remission chronic sinusitis allergies back pain gastroesophageal reflux dise ase, upper endoscopy 07/31 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 pylori infection and treated Surgical History Surgery Date(Month/Year)
--- OUTSIDE RECORDS SUMMARY | 2025-01-15 06:27 | XMS_ITS ---
Author Organization 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 Operator Name Role Phone Luis Francois MD Primary Care Provider Enrrique Mcgowan Jr REASON FOR VISIT Patient presents today for a screening colonoscopy Encounters Encounter Location Date Provider Diagnosis [facility] [address] [facility] [place] [address] 10/29/2023 Enrrique Roper Jr Plan Of Treatment No Information Progress Notes * RUTHY DAMONDOB:1980 (44 yo F)Acc No.[id number]:10/29/2023 Progress Notes Patient:?RUTHY DAMON Provider:?Enrrique Roper MD :1980???Age:43 Y???Sex:Female D ate:10/29/2023 Address:[address] [id number] Pcp:Luis Francois MD Subjective: * Chief Complaints: * ???1. Patient presents today for a screening colonoscopy. * Medical History:? Objective: * Vitals:? Assessment: Plan: * Treatment: * * The named appointment provid er may or may not be the originator of this progress note, and it is not deemed complete until electronically signed by the appointment provider. Sign off status: Pending * Provider:?Enrrique Roper MD Date:?1 12/30/2022 Generated for Printi ng/Fatruongg/eTransmitting on:?01/15/2025 06:26 AM EST
--- OUTSIDE RECORDS SUMMARY | 2025-01-15 06:27 | XMS_ITS | Data Portability ---
Author Organization [facility] [address] Address [address] [place] [address] Assessment No assessment recorded. Plan of Treatment Reminders Order Date Submit Date Provider Last Modified By Organization Details Last Modified Time Details Appointments None recorded. Lab None recorded. Referral None recorded. Procedures None recorded. Surgeries None recorded. Imaging None recorded. Medication Orders polymyxin B sulfate 10,000 unit-trime thoprim 1 mg/mL eye drops 2022 023 [id number], [address], [place], [phone], 17:18:55 Patient TargetsNo targets recorded. Patient Instructions Encounter Date Encounter Id Patient Instructions Last Modified By Organization Details Last Modified Time 07/01/2023 [id number] eneida: care instructions [email or web address] Not available 07/01/2023 17:19:25 Reason for Referral None Reported. Problems Name Problem SNOMED Code Status Onset Date Resolution Date Notes Provider Name and Address Organization Details Recorded Time Eczema 00300928 Active 2022 FILIPE valdes, PA - [facility] 17:02:27 Attention deficit hyperactivity disorder 466858739 Active 2022 FILIPE valdes, PA - [facility] 3 17:03:02 Herpes simplex type 1 infection 452554255 Active 2022 [facility]des, [facility] - [facility] [...] Name and Address Organization Details Recorded Time 439322 dextromet horphan medicatio n other Not available [...] Updated DateTime 3 163.83 cm 22 kg/m2 72765.0 1 g 0 19 /min 98 % 98 % 104 /min 97.7 [degF] 105 mm[Hg] 74 mm[Hg] FILIPE ROCHA PA - [facility] 17:06:00 Social History Question Answer Notes LastModified by Organizat ion Details LastModified Time Tobacco Smoking Status Former Smoker FILIPE ALEX Mag[place] [facility] 07/01/2023 17:03:40 What Is Your Level Of Alcohol Consumption? None Information not available 07/01/2023 Do You Or Have You Ever Used E-cigarettes Or Vape? Current User Of Electronic Cigarettes [email or web address] Information not available 07/01/2023 When Did You Quit Smoking? 6-10yearssince lastcigarette [email or web address] Information not available 07/01/2023 Do You Use Any Illicit Or Recreational Drugs? No [email or web address] Information not available 07/01/2023 Have You Recently Traveled Abroad? No [email or web address] Information not available 07/01/2023 Do You Or Have You Ever Used Any Other Forms Of Tobacco Or Nicotine? Yes [email or web address] Information not available 07/01/2023 Sex: Unknown Functional [...] SNOMED-CT Code Diagnosis ICD10 Code Diagnosis Note [id number] Anne-Marie Camilo, JENNIFER [address] [facility] [address] [place] [address] 07/01/2023 16:40:33 07/01/2023 17:21:57 Acute conjunctivitis of left eye 7431159956 92601 H10.32 Based on your presentati on and [...] Quintana Member ID Guarantor Name 07/01/2023 1 [facility] [place] [employer] - TOGETHER (MEDICAID HMO) [id number] Lurdes Sandhu [id number] Lurdes Sandhu Notes Date Note Type [...] Camilo NP [address] [place], [address], [place] - [facility] 07/01/2023 17:29:52 OBGyn Episode No OBEpisode recorded.
--- OUTSIDE RECORDS SUMMARY | 2025-01-15 06:27 | XMS_ITS ---
Author Organization [facility] Address [address] [place] [address] Care Team Providers Care Rubber Off Name Role Phone Luis Francois MD Primary Care Provider UnavailEnrrique Riggs Jr REASON FOR VISIT Pt no showed Encounters Encounter Location Date Provider Diagnosis [facility] [address] [place] [address] 10/29/2023 Enrrique Roper Jr Plan Of Treatment No Information Progress Notes * RUTHY DAMONDOB:1980 (43 yo F)Acc No.[id number]:10/29/2023 Patient:?RUTHY DAMON :1980???Age:43 Y???Sex:Female Address[address] [place], [address] * true * Date:? Generated for Chelyi prerna/Dulce Maria/eTransmitting on:?01/15/2025 06:26 AM EST
== END 2025-01-15 06:24 | disposition home or self-care (01) ==
LOC: CF 06:23
PROVIDERS: Visit Provider Internal Medicine
DX: M54.16 Radiculopathy, lumbar region (principal); M51.369 Other intervertebral disc degeneration, lumbar region without mention of lumbar back pain or lower extremity pain; M51.26 Other intervertebral disc displacement, lumbar region
CPT/HCPCS: 64483; J1100; J2003; Q9967

== ENCOUNTER 2025-01-15 12:29 | Outpatient (AMB) | payer OTHER, SELFPAY ==
[2025-01-15 12:34] VITALS: BP 108/72; PULSE 94; O2SAT 100
--- NOTE | 2025-01-15 12:34 | MHC.OFFVIS ---
Vital Signs 01/15/25 12:34 01/15/25 13:13 BP 108/72 109/58 L Blood Pressure Location Lt brachial Lt brachial Position Sitting Sitting Pulse 94 99 Pulse Source Pulse Oximeter Pulse Oximeter Pulse Oximetry (%) 100 97 Oxygen Delivery Method Room Air Room Air Comment Pre-Op Post-Op Intake Visit Reasons: Left L4-L5 TFESI Allergies dextromethorphan Allergy (Verified 12/05/24 09:06) Unknown HPI HPI Left L4-L5 TFESI: Details: Patient presents for scheduled procedure. Denies any recent cough, cold, infection, fever or other significant changes in medical history since last office visit. 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 The patient was placed in the prone position on the fluoroscopy table. The lumbosacral area was prepped with chloraprep, allowed to dry and draped in sterile fashion. Using fluoroscopy, the skin overlying our target was anesthetized with 0.5% lidocaine. A 22 gauge 3.5 inch spinal needle was advanced to the safe triangle in the upper pole of the left L4 foramen. No paresthesias were elicited with needle placement and aspiration was negative for blood and CSF. Correct needle position was confirmed with approximately 1 ml contrast dye (Omnipaque 180 mg/ml) injected under real-time fluoroscopy. No evidence of vascular or intrathecal uptake was seen and there was both epidural and peripheral spread of the contrast agent. 10 mg dexamethasone plus 1 ml containing 0.5% lidocaine was slowly injected. The needle was flushed and removed. The skin was cleansed and a sterile bandages were applied. The patient tolerated the procedure well and no complications were encountered. Following the procedure the patient's vital signs were stable. The patient was discharged home in good condition with post-procedural instructions. Time Out: Immediately prior to the procedure, the following was verbally confirmed that there is a signed consent form and that the correct patient, planned procedure, site and side are consistent with documentation and that necessary equipment and/or blood products are available prior to the start of the case. Complications: none EBL: <5 cc 22308 - Lumbar/Sacral Procedure code (CPT) selection complete Assessment & Plan Assessment & Plan (1) Lumbar radiculopathy: Code(s): M54.16 - Radiculopathy, lumbar region Category: Medical Plan Patient is status post left L4 TFESI. Patient tolerated procedure well and was discharged home in stable condition with discharge instructions. All questions were answered. We will follow-up via telephone or in clinic to assess response to therapy. A follow-up appointment was made during today's visit. Orders: Orders FL guidance in treatment room Today M51.26 - Other intervertebral disc displacement, lumbar region, M51.369 - Other intervertebral disc degeneration, lumbar region without mention of lumbar back pain or lower extremity pain, M54.16 - Radiculopathy, lumbar region Coding Level of Care Code Procedure Only Diagnoses Lumbar radiculopathy M54.16 CPT Codes Transforaminal Epidural Steroid Inj - TESI 3: 58715 - Lumbar/Sacral ([id number])
[2025-01-15 13:13] VITALS: BP 109/58; PULSE 99; O2SAT 97
== END 2025-01-15 13:13 | disposition home or self-care (01) ==
LOC: HO.PMCPRC 12:29
PROVIDERS: PCP Nurse Practitioner Family; Visit Provider Internal Medicine
DX: M54.16 Radiculopathy, lumbar region (principal)
CPT/HCPCS: 64483

== ENCOUNTER 2025-01-22 09:24 | Outpatient (AMB) | payer OTHER, SELFPAY ==
[2025-01-22 09:38] VITALS: BMI 23.0
--- NOTE | 2025-01-22 09:38 | MHC.OFFVIS ---
Vital Signs 01/22/25 09:38 Height 5 ft 5 in Weight 138 lb BMI 23.0 Intake Visit Reasons: f/u s/p L4-5 epidural injection Intake Note: Lurdes 44 yr old female presents today for her follow up visit for her epidural injection to her L4-L5 on 01/15/[address] Luu with pain management. States Dr Luu was wonderful however state she did not have a good experience with the staff. States injection has helped by making her pain more tolerable, she is now able to sit more comfortable. Patient continues to be out of work. Allergies dextromethorphan Allergy (Verified 01/22/25 09:46) Unknown Medication List - Last Reconciled 01/22/25 by Lynette Mccracken MD atomoxetine (Strattera) 60 mg PO DAILY clonidine HCl 0.1 mg PO DAILY cyclobenzaprine 10 mg PO TID PRN dexamethasone 4 mg PO BID fluticasone propionate 50 mcg/actuation 2 sprays intranasal DAILY gabapentin 300 mg PO TID nitrofurantoin monohyd/m-cryst 100 mg (Macrobid) 100 mg PO Q12H 5 days valacyclovir 1,000 mg PO BID HPI Comments Details: Seen in ER 10/19/2024 complaining of left hip pain. Prescribed dexamethasone, Flexeril and Percocet. No imaging done. Chronic back, would flare once or twice a month, knows what to do to make it better. This is the first episode that has lasted longer and affected her functionally. Was having muscle spasms night before then woke up with severe pain in the morning. Can't sit on left side. Numb down to calf, not the toes. Left knee gives out but no pain on the knee. Treatment done so far: solumedrol IM, dexamethasone for 4 days - no relief ibuprofen 600mg every 4-6 hours History of opioid abuse, on recovery. MRI images reviewed: disc desiccation most prominent at L5-S1, but focal disc protrusion seen in left L4-5. Injection 01/15/25 left L4-5 transforaminal epidural, Dr. Luu, only 1 week ago. For now, 25% relief so far. It is not pain anymore when she sits. Now more like numbness on left, from left back to left dorsal foot. The water sensation is also gone. No weakness. No buckling. No bladder/bowel changes. Next follow up with Dr. Luu 02/13/25. 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 Patient was appropriately conversant and oriented. Good historian. MSK: No specific abnormalities found on inspection of the spine and all extremities. No pain with palpation over the lumbar area. No SI joint tenderness. Lumbar ROM was full. Bilateral hip, knee and ankle ROM WNL. No ligamentous laxity or crepitance. No increased effusion. Slump sit negative. Able to do ARTURO test now, negative. Neurological: Knee extensor and dorsiflexion strong 5/5. Cummins?s negative bilaterally. Babinski was down going bilaterally. Clonus was negative. Gait is non antalgic without loss of balance. Results Reviewed Results Reviewed: Ordering Physician: Lynette Guerra Date of Service: 12/03/24 Procedure(s): MR lumbar spine wo con Accession Number(s): [id number] cc: Luis Francois MD; Lynette Guerra~ CLINICAL HISTORY: M54.16 - Radiculopathy, lumbar region MR lumbar spine without gadolinium Comparison: None Findings: No acute fracture . Fatty infiltration of the majority of the visualized sacrum.. Lower lumbar spine disc dehydration and severe L5/S1 disc narrowing. Conus terminates at L1. Unremarkable appearance of the visualized cord and conus medullaris. L5/S1: Grade 1 retrolisthesis and pseudodisc bulge associated with [id number]-dv-jdyzpnjc left more than right neural foraminal stenosis. L4/L5: Mildly superiorly migrating left lateral recess/left neural foraminal disc herniation measuring up to 3 mm in AP dimension compresses the neighboring exiting left L4 nerve and causes severe stenosis of the superior aspect of the left lateral recess. L3/L4: Mildly superiorly migrating predominantly left neural foraminal disc herniation measuring up to 6 mm in AP dimension compresses the neighboring exiting left L3 nerve root, and is associated with tnmj-nf-fhcjfwzi focal stenosis of the left lateral recess. T12/L1 to L1/L2: No evidence of significant central canal or neural foraminal stenosis. IMPRESSION: L3/L4: Mildly superiorly migrating predominantly left neural foraminal disc herniation measuring up to 6 mm in AP dimension compresses the neighboring exiting left L3 nerve root, and is associated with qwik-zj-hhflwrkm focal stenosis of the left lateral recess. L4/L5: Mildly superiorly migrating left lateral recess/left neural foraminal disc herniation measuring up to 3 mm in AP dimension compresses the neighboring exiting left L4 nerve and causes severe stenosis of the superior aspect of the left lateral recess. 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 One week after epidural injection, she is feeling some improvement. Our hope is this will continue, but possibly we will still need 1 or 2 more injections. She has a follow up coming up with Dr. Luu. She is ready to go back to work full-time. No restrictions. Beginning 01/25/2025. She may continue gabapentin for now. She has finished physical therapy. Advised to continue home exercise program. Assessment and plan discussed with patient, and patient was agreeable. All questions were answered thoroughly. No further follow up with me for now, unless I need to continue prescriptions for gabapentin. In that case I will need to see her every 6 months at least. Total of 30 minutes spent today including chart review, results review, history taking, physical examination, discussion of assessment and plan, and coordination of care. 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
--- OUTSIDE RECORDS SUMMARY | 2025-01-22 11:01 | XMS_ITS ---
Author Organization [facility] Address [address] [place] [facility] [place] [address] Care Team Providers Care Director Of Graduate Admissions Name Role Phone Luis Francois MD Primary Care Provider Enrriqeu Mcgowan Jr [phone] REASON FOR VISIT Patient presents today for a screening colonoscopy Encounters Encounter Location Date Provider Diagnosis [facility] [address] [place] [facility] [place] [address] 10/29/2023 Enrrique Roper Jr Plan Of Treatment No Information Progress Notes * RUTHY DAMONDOB:1980 (44 yo F)Acc No.[id number]:10/29/2023 Progress Notes Patient:?RUTHY DAMON Provider:?Enrrique Roper MD :1980???Age:43 Y???Sex:Female D ate:10/29/2023 Address:[address] [place] Pcp:Luis Francois MD Subjective: * Chief Complaints: [...] MD Date:?1 12/30/2022 Generated for Printi ng/Fatruongg/eTransmitting on:?01/22/2025 11:00 AM EDT
--- OUTSIDE RECORDS SUMMARY | 2025-01-22 11:01 | XMS_ITS ---
Author Organization [facility] Address [address] [place] [address] Care Team Providers Care Recycler Forklift Driver Truck Driver Name Role Phone Luis Francois MD Primary Care Provider UnavailEnrrique Riggs Jr [phone] REASON FOR VISIT Pt no showed Encounters Encounter Location Date Provider Diagnosis [facility] [address] [place] [address] 10/29/2023 Enrrique Roper Jr Plan Of Treatment No Information Progress Notes * RUTHY DAMONDOB:1980 (43 yo F)Acc No.[id number]:10/29/2023 Patient:?RUTHY DAMON :1980???Age:43 Y???Sex:Female Address[address], [address] * true * Date:? Generated for Printi prerna/Dulce Maria/eTransmitting on:?01/22/2025 11:01 AM EDT
--- OUTSIDE RECORDS SUMMARY | 2025-01-22 11:01 | XMS_ITS | Data Portability ---
Author Organization [facility] [address] Address [address] [place] [address] Assessment No assessment recorded. Plan of Treatment Reminders Order Date Submit Date Provider Last Modified By Organization Details Last Modified Time Details Appointments None recorded. Lab None recorded. Referral None recorded. Procedures None recorded. Surgeries None recorded. Imaging None recorded. Medication Orders polymyxin B sulfate 10,000 unit-trime thoprim 1 mg/mL eye drops 2022 023 [id number], [address] [place], [place], [id number], 17:18:55 Patient TargetsNo targets recorded. Patient Instructions Encounter Date Encounter Id Patient Instructions Last Modified By Organization Details Last Modified Time 07/01/2023 [id number] [email or web address]: care instructions [email or web address] Not available 07/01/2023 17:19:25 Reason for Referral None Reported. Problems Name Problem SNOMED Code Status Onset Date Resolution Date Notes Provider Name and Address Organization Details Recorded Time Eczema 77875585 Active 2022 FILIPE valdes, [place] - [facility] 17:02:27 Attention deficit hyperactivity disorder 496229361 Active 2022 FILIPE valdes, [place] - [facility] 3 17:03:02 Herpes simplex type 1 infection 017820443 Active 2022 [facility] [...] Name and Address Organization Details Recorded Time 768659 dextromet horphan medicatio n other Not available [...] Updated DateTime 3 163.83 cm 22 kg/m2 20688.0 1 g 0 19 /min 98 % 98 % 104 /min 97.7 [degF] 105 mm[Hg] 74 mm[Hg] FILIPE ROCHA PA - [facility] 17:06:00 Social History Question Answer Notes LastModified by Organizat ion Details LastModified Time Tobacco Smoking Status Former Smoker FILIPE [facility] [place] [facility] 07/01/2023 17:03:40 What Is Your Level Of Alcohol Consumption? None [email or web address] Information not available 07/01/2023 Do You Or Have You Ever Used E-cigarettes Or Vape? Current User Of Electronic Cigarettes [email or web address] Information not available 07/01/2023 When Did You Quit Smoking? 6-10yearssince lastcigarette [email or web address] Information not available 07/01/2023 Do You Use Any Illicit Or Recreational Drugs? No [email or web address] Information not available 07/01/2023 Have You Recently Traveled Abroad? No [email or web address] Information not available 07/01/2023 Do You Or Have You Ever Used Any Other Forms Of Tobacco Or Nicotine? Yes [email or web address] Information not available 07/01/2023 Sex: Unknown Functional [...] SNOMED-CT Code Diagnosis ICD10 Code Diagnosis Note [id number] Anne-Marie Camilo, JENNIFER [address] [facility] [address] [place] [address] 07/01/2023 16:40:33 07/01/2023 17:21:57 Acute conjunctivitis of left eye 7942698486 89609 H10.32 Based on your presentati on and [...] Quintana Member ID Guarantor Name 07/01/2023 1 [facility] [email or web address] - TOGETHER (MEDICAID HMO) [id number] Lurdes Sandhu [id number] 1 Lurdes Sandhu Notes Date Note Type [...] Camilo NP [address] [place], [address], [place] - [facility] 07/01/2023 17:29:52 OBGyn Episode No OBEpisode recorded.
--- OUTSIDE RECORDS SUMMARY | 2025-01-22 11:01 | XMS_ITS | Patient Health Record ---
Author Organization [facility] Address [address] [place] [address] Care Team Providers Care Shop Hand Name Role Phone Luis Francois MD Primary Care Provider Enrrique Mcgowan Jr Unavailable Allergies Allergen (clinical drug ingredient) Drug/Non Drug [...] Problem Status W/U Status Risk Notes Problem 344765947 Gastro-esophagea l reflux disease without esophagitis (K21.9) Active confirmed Problem 51306776 Dysphagia, unspecified type (R13.10) Active confirmed Problem 733240955 Abnormal barium swallow (R93.3) Active confirmed Problem 427087009 H. pylori infection (A04.8) Active confirmed Plan Of Treatment Pending Test Test Name Order Date H PYLORI AG, STOOL 08/09/2020 Future Test Test Name Order Date UPPER GI ENDOSCOPY 05/29/2019 Insurance Providers Payer Name Payer Address Payer Phone Subscriber Number Group Number Insured Name Patient Relationship to Insured Coverage Start Date Coverage End Date [facility] [address] [place] [phone] [id number] RUTHY DAMON Self - patient is the insured MEDICAID OF [facility] [address] [place] [phone] [id number] RTUHY DAMON Self - patient is the insured Medical (General) History Medical History History ICD Code substance abuse, currently in remission chronic sinusitis allergies back pain gastroesophageal reflux dise ase, upper endoscopy 07/31 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 pylori infection and treated Surgical History Surgery Date(Month/Year)
== END 2025-01-22 10:20 | disposition home or self-care (01) ==
LOC: HO.HOS 09:25
PROVIDERS: PCP Internal Medicine; Visit Provider Physical Medicine & Rehabilitation
DX: M51.369 Other intervertebral disc degeneration, lumbar region without mention of lumbar back pain or lower extremity pain (principal); M51.26 Other intervertebral disc displacement, lumbar region; M54.16 Radiculopathy, lumbar region
CPT/HCPCS: 99214

== ENCOUNTER → 2025-01-22 09:24 | Outpatient (BNVA) | payer OTHER, SELFPAY | PROVIDERS: PCP Internal Medicine; Visit Provider Physical Medicine & Rehabilitation ==

== ENCOUNTER 2025-02-13 09:24 | Outpatient (AMB) | payer OTHER, SELFPAY ==
--- NOTE | 2025-02-13 09:27 | A.OFFVIS_ITS ---
Vital Signs 02/13/25 09:30 Height 5 ft 5 in Weight 140 lb BMI 23.3 BP 120/64 Blood Pressure Location Lt brachial Position Sitting Respiration 16 Pulse 97 Pulse Source Pulse Oximeter Pulse Oximetry (%) 100 Oxygen Delivery Method Room Air Intake Visit Reasons: s/p Left L4-L5 TFESI Fruit Dryer Required: No Allergies dextromethorphan Allergy (Verified 02/13/25 09:31) Unknown Medication List - Last Reconciled 02/13/25 by Karla Mann LPN atomoxetine (Strattera) 60 mg PO DAILY clonidine HCl 0.1 mg PO DAILY dextroamphetamine-amphetamine 30 mg ER PO DAILY fluticasone propionate 50 mcg/actuation 2 sprays intranasal DAILY gabapentin 300 mg PO TID levothyroxine 100 mcg PO DAILY methadone 30 mg PO DAILY sertraline 100 mg PO DAILY valacyclovir 1,000 mg PO BID HPI HPI s/p Left L4-L5 TFESI: Details: History of Present Illness The patient is a 44-year-old female presenting with lumbar radiculopathy following a left L4 TFESI. 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 The patient reports persistent discomfort with intermittent leg pain and numbness when seated for long durations, although walking provides relief. She is interested in resuming exercise routines mindfully, considering her history as an athlete and the history of her lumbar radiculopathy. Pain Description - Onset/Timing: Post-injection follow-up for chronic lumbar radiculopathy - Quality/Character: Pain down the leg with occasional numbness - Primary Location: Left-sided lumbar region, radiating down the leg - Exacerbating Factors: Prolonged sitting - Relieving Factors: Walking, resuming activity - Impact on Function: Limits prolonged sitting and causes discomfort, desires to return to exercise carefully Physical Exam - Appears afebrile. - Alert and oriented. - Mood and affect appropriate. - Follows and participates in conversation appropriately. - Respiratory effort is unlabored. 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 Physical Exam Vital Signs: Last Vital Signs Pulse 97 02/13/25 09:30 Resp 16 02/13/25 09:30 BP 120/64 02/13/25 09:30 Pulse Ox 100 02/13/25 09:30 Oxygen Delivery Method Room Air 02/13/25 09:30 BMI result Body Mass Index 23.3 Assessment & Plan Assessment & Plan (1) Lumbar radiculopathy: Code(s): M54.16 - Radiculopathy, lumbar region Category: Medical (2) 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 Continued attention to activity modification and correct lifting techniques will help prevent symptom exacerbation. Further intervention may be considered if symptoms persist or worsen despite these measures, with follow-up scheduled to evaluate the patient's progress and response to treatment. Patient was informed and verbally consented to the use of an ambient scribe for clinic note documentation during this visit. Discussion Notes During the consultation, we discussed the benefits of conservative management following the initial partial relief from the lumbar radiculopathy injection. I explained the importance of gradual reintroduction to exercise and specific strengthening exercises for the quadriceps, glutes, and core to support spinal stability and minimize pain recurrence. We also reviewed the need to maintain awareness of activities that may trigger pain, such as prolonged sitting or improper lifting. The patient has been receptive to these strategies and understands the plan to monitor her symptoms with potential future interventions if necessary. Anticipatory guidance regarding correct technique and preventive strategies was emphasized to avoid exacerbation of her condition. 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
[2025-02-13 09:30] VITALS: BP 120/64; PULSE 97; RESP 16; O2SAT 100; BMI 23.3
--- OUTSIDE RECORDS SUMMARY | 2025-02-13 10:15 | XMS_ITS | Patient Health Record ---
Author Organization [facility] Address [address] [place] [address] Care Team Providers Care Mandate Retail Service Merchandiser Name Role Phone Luis Francois MD Primary [...] Problem Status W/U Status Risk Notes Problem 423839855 Gastro-esophagea l reflux disease without esophagitis (K21.9) Active confirmed Problem 33270306 Dysphagia, unspecified type (R13.10) Active confirmed Problem 053753663 Abnormal barium swallow (R93.3) Active confirmed Problem 770076912 H. pylori infection (A04.8) Active confirmed Plan Of Treatment Pending Test Test Name Order Date H PYLORI AG, STOOL 08/09/2020 Future Test Test Name Order Date UPPER GI ENDOSCOPY 05/29/2019 Insurance Providers Payer Name Payer Address Payer Phone Subscriber Number Group Number Insured Name Patient Relationship to Insured Coverage Start Date Coverage End Date [facility] [address] [place] [phone] [id number] RUTHY DAMON Self - patient is the insured MEDICAID OF [facility] [address] [facility] [address] [id number] RUTHY DAMNO Self - patient is the insured Medical (General) History Medical History History ICD Code substance abuse, currently in remission chronic sinusitis allergies back pain gastroesophageal reflux dise ase, upper endoscopy 07/31 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 pylori infection and treated Surgical History Surgery Date(Month/Year)
--- OUTSIDE RECORDS SUMMARY | 2025-02-13 10:16 | XMS_ITS ---
Author Organization [facility] Address [address] [place] [facility] [place] [address] Care Team Providers Care Ammonia Solution Preparer Name Role Phone Luis Francois MD Primary Care Provider Enrrique Mcgowan Jr REASON FOR VISIT Patient presents today for a screening colonoscopy Encounters Encounter Location Date Provider Diagnosis [facility] [address] [place] [facility] [place] [address] 10/29/2023 Enrrique Roper Jr Plan Of Treatment No Information Progress Notes * RUTHY DAMONDOB:1980 (44 yo F)Acc No.[id number]:10/29/2023 Progress Notes Patient:?RUTHY DAMON Provider:?Enrrique Roper MD :1980???Age:43 Y???Sex:Female D ate:10/29/2023 Address:[address] [place] Pcp:Luis Francois MD Subjective: * Chief Complaints: [...] MD Date:?1 12/30/2022 Generated for Printi ng/Fatruongg/eTransmitting on:?02/13/2025 10:15 AM EDT
--- OUTSIDE RECORDS SUMMARY | 2025-02-13 10:16 | XMS_ITS | Data Portability ---
Author Organization [facility] [address] Address [address] [place] [address] Assessment No assessment recorded. Plan of Treatment Reminders Order Date Submit Date Provider Last Modified By Organization Details Last Modified Time Details Appointments None recorded. Lab None recorded. Referral None recorded. Procedures None recorded. Surgeries None recorded. Imaging None recorded. Medication Orders polymyxin B sulfate 10,000 unit-trime thoprim 1 mg/mL eye drops 2022 023 [id number], [address] [place], [place], [id number], 17:18:55 Patient TargetsNo targets recorded. Patient Instructions Encounter Date Encounter Id Patient Instructions Last Modified By Organization Details Last Modified Time 07/01/2023 [id number] [email or web address]: care instructions [email or web address] Not available 07/01/2023 17:19:25 Reason for Referral None Reported. Problems Name Problem SNOMED Code Status Onset Date Resolution Date Notes Provider Name and Address Organization Details Recorded Time Eczema 15926458 Active 2022 FILIPE valdes, [place] - [facility] 17:02:27 Attention deficit hyperactivity disorder 955806917 Active 2022 FILIPE valdes, [place] - [facility] 3 17:03:02 Herpes simplex type 1 infection 336768979 Active 2022 FILIPE valdes, [place] - [facility] 17:03:24 Problem Notes None recorded. Procedures Surgical History Date Name Laterality Status Provider Name and Address Organization Details Recorded Time nasal sinus procedure completed FILIPE ROCHA PA - [facility] 07/01/2023 17:04:16 Imaging Results None recorded. Procedure Notes None recorded. Medical Equipment None Reported. Allergies Allergen ID Allergen Name Allergen Category Reaction Reaction Severity Criticality Documentation Date Start Date Code Code System Note Provider Name and Address Organization Details Recorded Time 828901 dextromet horphan medicatio n other Not available [...] Updated DateTime 3 163.83 cm 22 kg/m2 47449.0 1 g 0 19 /min 98 % 98 % 104 /min 97.7 [degF] 105 mm[Hg] 74 mm[Hg] FILIPE ROCHA PA - [facility] 17:06:00 Social History Question Answer Notes LastModified by Organizat ion Details LastModified Time Tobacco Smoking Status Former Smoker FILIPE [facility] 07/01/2023 17:03:40 What Is Your Level Of Alcohol Consumption? None [email or web address] Information not available 07/01/2023 Do You Or Have You Ever Used E-cigarettes Or Vape? Current User Of Electronic Cigarettes Information not available 07/01/2023 When Did You Quit Smoking? 6-10yearssince lastcigarette [email or web address] Information not available 07/01/2023 Do You Use Any Illicit Or Recreational Drugs? No [email or web address] Information not available 07/01/2023 Have You Recently Traveled Abroad? No Information not available 07/01/2023 Do You Or Have You Ever Used Any Other Forms Of Tobacco Or Nicotine? Yes [email or web address] Information not available 07/01/2023 Sex: Unknown Functional [...] SNOMED-CT Code Diagnosis ICD10 Code Diagnosis Note [id number] Anne-Marie Camilo, JENNIFER [address] [facility] [address] [place] [address] 07/01/2023 16:40:33 07/01/2023 17:21:57 Acute conjunctivitis of left eye 1313095714 50508 H10.32 Based on your presentati on and [...] Quintana Member ID Guarantor Name 07/01/2023 1 [facility] PLANS [employer] - TOGETHER (MEDICAID HMO) [id number] Lurdes Sandhu [id number] 1 Lurdes Sandhu Notes Date Note Type [...] Camilo NP [address] [place], [address], [place] - [facility] 07/01/2023 17:29:52 OBGyn Episode No OBEpisode recorded.
--- OUTSIDE RECORDS SUMMARY | 2025-02-13 10:16 | XMS_ITS ---
Author Organization [facility] Address [address] [place] [address] Care Team Providers Care Desk Manager Name Role Phone Luis Francois MD Primary Care Provider UnavailEnrrique Riggs Jr [phone] REASON FOR VISIT Pt no showed Encounters Encounter Location Date Provider Diagnosis [facility] [address] [place] [address] 10/29/2023 Enrrique Roper Jr Plan Of Treatment No Information Progress Notes * RUTHY DAMONDOB:1980 (43 yo F)Acc No.[id number]:10/29/2023 Patient:?RUTHY DAMON :1980???Age:43 Y???Sex:Female Address[address], [address] * true * Date:? Generated for Printi ng/Fatruongg/eTransmitting on:?02/13/2025 10:15 AM EDT
== END 2025-02-13 09:48 | disposition home or self-care (01) ==
LOC: HO.PMC 09:25
PROVIDERS: PCP Internal Medicine; Visit Provider Internal Medicine
DX: M54.16 Radiculopathy, lumbar region (principal); M51.369 Other intervertebral disc degeneration, lumbar region without mention of lumbar back pain or lower extremity pain; M51.26 Other intervertebral disc displacement, lumbar region
CPT/HCPCS: 99213

== ENCOUNTER → 2025-02-13 09:24 | Outpatient (BNVA) | payer OTHER, SELFPAY | PROVIDERS: PCP Internal Medicine; Visit Provider Internal Medicine ==

== ENCOUNTER 2025-07-23 16:08 | Outpatient (AMB) | payer OTHER, SELFPAY ==
[2025-07-23 11:15] VITALS: BP 120/80; PULSE 92; TEMP 36.4; O2SAT 99; BMI 24.0
--- NOTE | 2025-07-23 11:15 | MHC.PC.OV ---
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
--- NOTE | 2025-07-23 15:58 | HO.NEPHOV ---
Vital Signs 07/23/25 11:15 Height 5 ft 5 in Weight 144 lb BMI 24.0 BP 120/80 Blood Pressure Location Lt brachial Position Sitting Pulse 92 Pulse Source Pulse Oximeter Temp 97.6 F Temp Source Temporal Artery Scan Pulse Oximetry (%) 99 Oxygen Delivery Method Room Air Intake Visit Reasons: annual exam Drier And Pulverizer Tender Required: No Accompanied by: Self / Same As Patient Allergies dextromethorphan Allergy (Verified 07/23/25 16:26) Unknown [facility] Medical History Methadone dependence Social History Alcohol intake: never Substance Use Type: Former Substance User Current occupational status: employed 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
--- NOTE | 2025-07-23 16:32 | MHC.PC.OV ---
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 Required: No Accompanied by: Self / Same As Patient Allergies dextromethorphan Allergy (Verified 07/23/25 16:26) Unknown Medication List - Last Reconciled 08/02/25 by ALEX Bolaños dextroamphetamine-amphetamine 30 mg ER PO DAILY fluticasone propionate 50 mcg/actuation 2 sprays intranasal DAILY gabapentin 300 mg PO TID levothyroxine 100 mcg PO DAILY 90 days methadone 30 mg PO DAILY sertraline 100 mg PO DAILY Tobacco use date assessed: 07/23/25 Dental Screening Dental Screen Date: 07/23/25 Did you have a dental visit in the last 12 months?: Yes Did you have a dental problem in the last 6 months where you did not have access to dental care?: No HPI HPI Comments History of Present Illness Details The patient is a 45-year-old female with history of substance abuse, ADHD, anxiety, hypothyroidism, low back pain, recurrent H pylori and Raynauds presenting for management of hypothyroidism, herniated disc with nerve pain, and preventative care including Pap smear, mammogram, and colonoscopy. The patient has a history of hypothyroidism diagnosed in October of last year, for which she is on thyroid medication. She reports adherence to her medication regimen as part of her recovery process. She has not had recent lab work to monitor her thyroid levels and acknowledges the need for updated labs. The patient experienced a herniated disc at the end of September, which resulted in severe pain and immobilization for nearly four months. She received an injection that significantly alleviated her symptoms, although she continues to experience some nerve pain managed with gabapentin. She reports symptoms consistent with Raynaud's phenomenon, including numbness and color changes in her hands, which occur in response to cold or anxiety. She has been managing these symptoms with topical treatments and is considering calcium channel blockers if symptoms worsen. The patient has a history of recurrent H. pylori infections, which she notes have also affected her daughter. She underwent an upper GI and barium swallow, which confirmed the presence of H. pylori. She does not have symptoms today. She reports perimenopausal symptoms, including hot flashes and mood swings, which have been impacting her daily life. She is currently on sertraline for anxiety and irritability, which she attributes to her ADHD and perimenopausal symptoms. She is followed by [facility] for her ADHD and anxiety. She is on Sertraline and Adderall. She is also on Methadone. The patient is due for a Pap smear and mammogram and has an upcoming appointment for these screenings. She is also overdue for a colonoscopy and acknowledges the need for this preventative measure. Patient was informed and verbally consented to the use of an ambient scribe for clinic note documentation during this visit. COUNTS INCLUDE 234 BEDS AT THE [facility] Medical History (Updated 07/30/25 @ 10:11 by ALEX Bolaños) ADHD Anxiety Health care maintenance History of Helicobacter pylori infection History of substance abuse Hypothyroidism Low vitamin D level Methadone dependence Perimenopausal Raynaud phenomenon Family History (Updated 07/23/25 @ 16:33 by Pamela Lucero MA) Mother No problems noted. Father No problems noted. 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 1. Little interest or pleasure in doing things: not at all 2. Feeling down, depressed, or hopeless: not at all 3. Trouble falling or staying asleep, or sleeping too much: not at all 4. Feeling tired or having little energy: not at all 5. Poor appetite or overeating: not at all 6. Feeling bad about yourself - or that you are a failure or have let yourself or your family down: not at all 7. Trouble concentrating on things, such as reading the newspaper or watching television: not at all 8. Moving or speaking so slowly that other people could have noticed. Or the opposite - being so fidgety or restless that you have been moving around a lot more than usual: not at all 9. Thoughts that you would be better off or of hurting yourself in some way: not at all Total score: 0 Depression Screening Interpretation: Negative Depression Screening Done: Yes Source: Developed by Drs. Talat Lundy, Palmer Pike and colleagues, with an educational khari from [employer]. Thrive Questionnaire Date Thrive assessed: 07/23/25 I am a: Patient Within the past 12 months, did the food you bought not last and you didn't have the money to get more?: Never true Within the past 12 months, did you worry whether your food would run out before you got money to buy more?: Never true Do you have trouble paying for medicines?: No Do you have trouble getting transportation to medical appointments?: No Do you have trouble paying your heating and electricity bill?: No Do you have trouble taking care of your child, family member or friend?: No Do you have trouble with day-to-day activities such as bathing, preparing meals, shopping, managing finances, etc.?: No Are you currently unemployed and looking for a job?: No Are you interested in more education?: No THRIVE Score: 0 AUDIT C Alcohol Use Questionnaire (AUDIT-C) 1. How often do you have a drink containing alcohol?: Never 3. How often do you have six or more drinks on one occasion?: Never Total Score: 0 BRADY-7 AMB Questionnaire BRADY-7 Date BRADY - 7 assessed: 07/23/25 Feeling nervous, anxious, or on edge: 1 = Several days (sometimes its happen) Not being able to stop or control worryin = Not at all Worrying too much about different things: 0 = Not at all Trouble relaxin = Not at all Being so restless that it is hard to sit still: 0 = Not at all Becoming easily annoyed or irritable: 0 = Not at all Feeling afraid as if something awful might happen: 0 = Not at all Total BRADY-7 score (0-4 normal; 5-9 mild; 10-14 moderate; 15-21 severe): 1 Source: Developed by Cheli Aviles Kurt Kroenke and colleagues, with an educational khari from [employer]. Review of Systems Const Details: CONSTITUTIONAL Reports perimenopausal symptoms including hot flashes and mood swings 6 lb weight gain in past 6 months HEAD/NECK Negative EAR/NOSE/MOUTH/THROAT Negative RESPIRATORY Negative CARDIOVASCULAR Negative GASTROINTESTINAL Reports recurrent H. pylori infections No abdominal pain MUSCULOSKELETAL Reports nerve pain due to herniated disc, improved with injection NEUROLOGICAL Reports numbness and color changes in hands consistent with Raynaud's phenomenon SKIN Reports eczema PSYCHIATRIC ADHD Anxiety Physical exam (Primary Care) Vital Signs: Last Vital Signs Temp 97.6 F 07/23/25 11:15 Pulse 92 07/23/25 11:15 BP 120/80 07/23/25 11:15 Pulse Ox 99 07/23/25 11:15 Oxygen Delivery Method Room Air 07/23/25 11:15 BMI result Body Mass Index 24.0 GENERAL Well developed, Well nourished, in no apparent distress HEENT Head-Normocephalic Eyes- PERRLA, EOMI, Conjuctiva clear, lids WNL Ears- Canals clear, TMs WNL Mouth/Throat-No lesions, no erythema, no exudate Neck- Supple, No lymphadenopathy, thyroid WNL RESPIRATORY Normal I:E, Clear to auscultation CARDIOVASCULAR Regular, rate and rhythm, No murmurs or rubs GASTROINTESTINAL Soft, nontender, normal bowel sounds, no masses MUSCULOSKELETAL Back-Normal ROM, Tender in lumbar, Tender with motion, Straight leg raise Positive, DTR 2+ symmetrical, Gait normal Joints- no pain swelling or deformity NEUROLOGICAL Gait normal PSYCHIATRIC Oriented to person, place and time Mood and affect anxious Appearance WNL Speech WNL Thought processes WNL Tobacco/Smoking Status: Tobacco use Status Tobacco use date assessed 07/23/25 07/23/25 16:35 Patient Tobacco Use Status Former Tobacco user 07/23/25 16:35 e-Cigarette/Vaping Use Currently Using (only vaping 07/23/25 16:35 ) PHQ-9: PHQ-9 Score PHQ-9: Total score 0 07/30/25 10:11 Depression Screening Interpretation: Negative Thrive Assessment: Date of Thrive Assessment Date Thrive assessed 07/23/25 07/23/25 16:35 Coding Level of Care Code New Pt New Pt Level 4 (84671) Patient Type New Diagnoses Acquired hypothyroidism E03.9 Hypothyroidism type: acquired Perimenopausal N95.1 Lumbar radiculopathy M54.16 Raynaud phenomenon I73.00 History of substance abuse F19.11 ADHD F90.9 Anxiety F41.9 History of Helicobacter pylori infection Z86.19 Health care maintenance Z00.00 Time Spent (min) 35 Comment Time spent on Chart review, medication reconciliation, H&P, patient education, orders Assessment & Plan Assessment & Plan (1) Hypothyroidism: Code(s): E03.9 - Hypothyroidism, unspecified Category: Medical Qualifiers: Hypothyroidism type: acquired Qualified Code(s): E03.9 - Hypothyroidism, unspecified Plan: The patient is currently on thyroid medication and adheres to her regimen. She has not had recent lab work to monitor her thyroid levels, and updated labs are planned to assess her current status. Patient to follow up in 6-8 weeks or sooner if symptoms persist or worsen. (2) Perimenopausal: Code(s): N95.1 - Menopausal and female climacteric states Category: Medical Plan: The patient is experiencing hot flashes and mood swings. She is currently on sertraline for anxiety and irritability, and a discussion about possibly switching to an SSNRI was suggested to help manage symptoms. Patient to follow up in 6-8 weeks or sooner if symptoms persist or worsen. (3) Lumbar radiculopathy: Code(s): M54.16 - Radiculopathy, lumbar region Category: Medical Plan: The patient experienced significant relief from an injection but continues to manage residual nerve pain with gabapentin. No further interventions were discussed during this visit. Patient will continue current medications. Will monitor. Patient will follow up in 6-8 weeks. (4) Raynaud phenomenon: Code(s): I73.00 - Raynaud's syndrome without gangrene Category: Medical Plan: The patient manages symptoms with topical treatments and is considering calcium channel blockers if symptoms worsen, especially with colder weather. Patient to follow up as needed if symptoms persist or worsen. (5) History of substance abuse: Code(s): F19.11 - Other psychoactive substance abuse, in remission Category: Medical Plan: Doing well on Methadone (6) ADHD: Code(s): F90.9 - Attention-deficit hyperactivity disorder, unspecified type Category: Medical Plan: Patient managed by Psychiatrist (7) Anxiety: Code(s): F41.9 - Anxiety disorder, unspecified Category: Medical Plan: Patient managed by Psychiatrist (8) History of Helicobacter pylori infection: Code(s): Z86.19 - Personal history of other infectious and parasitic diseases Category: Medical Plan: The patient has a history of recurrent infections confirmed by upper GI and barium swallow. No specific treatment plan was discussed during this visit. (9) Health care maintenance: Code(s): Z00.00 - Encounter for general adult medical examination without abnormal findings Category: Medical Plan: The patient is scheduled for a Pap smear and mammogram and is planning a referral for a colonoscopy to ensure comprehensive preventative care. Plan During the visit, we discussed the management of hypothyroidism, including the need for updated lab work to assess thyroid levels. We also reviewed the patient's ongoing management of herniated disc pain with gabapentin and the potential use of calcium channel blockers for Raynaud's phenomenon if symptoms worsen. The patient was informed about the importance of preventative care, including scheduling a Pap smear, mammogram, and colonoscopy. We also discussed the management of perimenopausal symptoms and the possibility of switching to an SSNRI to better manage mood swings and hot flashes. Orders: Orders Thyroid Peroxidase Antibodies 07/23/25 E06.3 - Autoimmune thyroiditis TSH reflex Free T4 07/23/25 E03.9 - Hypothyroidism, unspecified Complete Blood Count no Diff 07/23/25 Z00.00 - Encounter for general adult medical examination without abnormal findings, H55.09 - Other forms of nystagmus Comprehensive Met. Panel 07/23/25 Z00.00 - Encounter for general adult medical examination without abnormal findings, Z79.899 - Other fci (current) drug therapy Lipid Panel 07/23/25 Z13.220 - Encounter for screening for lipoid disorders Vitamin D 25-OH Total 07/23/25 R79.89 - Other specified abnormal findings of blood chemistry Thyroglobulin Antibodies 07/23/25 E06.3 - Autoimmune thyroiditis Follicle Stimulating Hormone 07/23/25 N95.1 - Menopausal and female climacteric states Referrals Open Access Screening Colonoscopy Referral Z12.11 - Encounter for screening for malignant neoplasm of colon Patient Instructions: - Continue taking all prescribed medications as directed. - Schedule and attend appointments for Pap smear, mammogram, and colonoscopy. - Monitor symptoms of Raynaud's phenomenon and consider calcium channel blockers if symptoms worsen. - Discuss with your provider the possibility of switching to an SSNRI for better management of perimenopausal symptoms. - Follow up in four weeks for lab results and further evaluation.
--- OUTSIDE RECORDS SUMMARY | 2025-07-23 18:54 | XMS_ITS | Patient Health Record ---
Author Organization [facility] Address [address] [place] [address] Care Team Providers Care Frame Straightener Name Role Phone Alessandro (RETIRED) Luis TOVAR Primary Care Provide Enrrique Escoto Jr Unavailable Allergies Allergen (clinical drug ingredient) [...] Problem Status W/U Status Risk Notes Problem [id number] Gastro-esophagea l reflux disease without esophagitis (K21.9) Active confirmed Problem 75237095 Dysphagia, unspecified type (R13.10) Active confirmed Problem 076545313 Abnormal barium swallow (R93.3) Active confirmed Problem 386929300 H. pylori infection (A04.8) Active confirmed Plan Of Treatment Pending Test Test Name Order Date H PYLORI AG, STOOL 08/09/2020 Future Test Test Name Order Date UPPER GI ENDOSCOPY 05/29/2019 Insurance Providers Payer Name Payer Address Payer Phone Subscriber Number Group Number Insured Name Patient Relationship to Insured Coverage Start Date Coverage End Date [facility] [address] [place] [phone] [id number] RUTHY DAMON Self - patient is the insured MEDICAID OF [facility] [address] [facility] [id number] RUTHY DAMON Self - patient is the insured Medical (General) History Medical History History ICD Code substance abuse, currently in remission chronic sinusitis allergies back pain gastroesophageal reflux dise ase, upper endoscopy 07/31 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 pylori infection and treated Surgical History Surgery Date(Month/Year)
== END 2025-07-23 17:08 | disposition home or self-care (01) ==
LOC: HO.HMCHD 16:08
PROVIDERS: PCP Internal Medicine; Visit Provider Physician Assistant Medical
DX: Z00.00 Encounter for general adult medical examination without abnormal findings (principal); F19.11 Other psychoactive substance abuse, in remission; E03.9 Hypothyroidism, unspecified; N95.1 Menopausal and female climacteric states; M54.16 Radiculopathy, lumbar region; I73.00 Raynaud's syndrome without gangrene; F90.9 Attention-deficit hyperactivity disorder, unspecified type; F41.9 Anxiety disorder, unspecified; Z86.19 Personal history of other infectious and parasitic diseases

== ENCOUNTER 2025-08-07 06:53 | Outpatient (REF) | payer OTHER, SELFPAY ==
--- OUTSIDE RECORDS SUMMARY | 2025-08-07 06:57 | XMS_ITS | Patient Health Record ---
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 pylori infection (A04.8) Active confirmed Plan Of Treatment Pending Test Test Name Order Date H PYLORI AG, STOOL 08/09/2020 Future Test Test Name Order Date UPPER GI ENDOSCOPY 05/29/2019 Insurance Providers Payer Name Payer Address Payer Phone Subscriber Number Group Number Insured Name Patient Relationship to Insured Coverage Start Date Coverage End Date [facility] [address] [place] [phone] [id number] RUTHY DAMON Self - patient is the insured MEDICAID OF [facility] [address] [facility] [phone] [id number] RUTHY DAMON Self - patient is the insured Medical (General) History Medical History History ICD Code substance abuse, currently in remission chronic sinusitis allergies back pain gastroesophageal reflux dise ase, upper endoscopy 07/31 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 pylori infection and treated Surgical History Surgery Date(Month/Year)
[2025-08-07 08:02] LABS: Hematocrit 32.5 % (37.0-47.0); Hemoglobin 10.5 g/dl (12.0-16.0); Mean Corpuscular HGB Conc 32.3 g/dl (31.0-35.0); Mean Corpuscular Hemoglobin 28.5 pg (27.0-33.0); Mean Corpuscular Volume 88.1 fL (80.0-98.0); NRBC Abs Auto 0.000 X10*3/uL (0.0-0.012); NRBC Pct Auto 0.0 /100WBC (0.0-0.2); Platelet Count 288 X10*3/uL (160-400); Red Blood Count 3.69 X10*6/uL (4.20-5.50); White Blood Count 4.9 X10*3/uL (4.8-10.8)
[2025-08-07 08:35] LABS: Alanine Aminotransferase 47 U/L (0-31); Albumin Level 4.2 g/dL (3.5-5.0); Alkaline Phosphatase 75 U/L (39-117); Anion Gap 10 (12-20); Aspartate Amino Transferase 51 U/L (5-31); Blood Urea Nitrogen 15 mg/dL (9-16); Calcium 9.4 mg/dL (8.4-10.2); Carbon Dioxide 32 mmol/L (22-29); Chloride 104 mmol/L (96-108); Cholesterol 207 mg/dL (<200); Estimated Glomerular Filt Rate > 60; HDL Cholesterol 36 mg/dL (>40); Potassium 3.9 mmol/L (3.3-5.1); Sodium 142 mmol/L (135-145); Total Protein 7.0 g/dL (6.5-8.0); Triglycerides 206 mg/dL (<150)
[2025-08-08 05:38] LABS: Thyroglobulin Antibodies 614 IU/mL (< or = 1)
[2025-08-08 07:09] LABS: Follicle Stimulating Hormone 11.5 mIU/mL
== END 2025-08-07 06:54 | disposition home or self-care (01) ==
LOC: HO.LAB 06:53
PROVIDERS: PCP Physician Assistant Medical; Visit Provider Physician Assistant Medical
DX: Z00.00 Encounter for general adult medical examination without abnormal findings (principal); E06.3 Autoimmune thyroiditis; H55.09 Other forms of nystagmus; R79.89 Other specified abnormal findings of blood chemistry; N95.1 Menopausal and female climacteric states; Z13.220 Encounter for screening for lipoid disorders; Z79.899 Other long term (current) drug therapy
CPT/HCPCS: 36415; 80053; 80061; 82306; 83001; 84443; 85027; 86376; 86800

== ENCOUNTER 2025-08-18 10:25 | Outpatient (AMB) | payer OTHER, SELFPAY ==
[2025-08-18 08:36] VITALS: BP 122/80; PULSE 98; TEMP 36.2; O2SAT 99; BMI 23.1
--- NOTE | 2025-08-18 08:36 | MHC.PC.OV ---
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 Required: No Accompanied by: Self / Same As Patient Allergies dextromethorphan Allergy (Verified 08/18/25 08:36) Unknown Tobacco use date assessed: 08/18/25 Dental Screening Dental Screen Date: 08/18/25 Did you have a dental visit in the last 12 months?: Yes Did you have a dental problem in the last 6 months where you did not have access to dental care?: No HPI HPI Comments History of Present Illness Details The patient is a 45-year-old female with history of substance abuse, ADHD, anxiety, hypothyroidism, low back pain, recurrent H pylori and Raynaud's presenting for management of thyroid function, cholesterol levels, and Raynaud's phenomenon. The patient has a euthyroid state with elevated thyroid antibodies, indicating ongoing thyroiditis. This condition has been monitored with regular thyroid function tests, and the patient is currently on a stable dosage of thyroid medication. The antibodies are expected to decrease over time, and the patient will undergo further testing in three months to assess the antibody levels. The patient's cholesterol level is slightly elevated at 207 mg/dL. Despite a diet low in fast foods and red meat, the cholesterol remains above the desired level of 200 mg/dL. The patient is advised to continue monitoring her diet, focusing on reducing saturated fats, and will have her cholesterol re-evaluated annually. The patient experiences Raynaud's phenomenon, which has been acting up recently. A calcium channel rox, nifedipine, has been prescribed to manage the symptoms, with instructions to monitor for any side effects such as dizziness or lightheadedness due to potential blood pressure changes. The patient reports a history of eczema exacerbation by vaccinations, particularly after receiving the flu vaccine. This condition has been managed by avoiding further vaccinations that may trigger flare-ups. Patient needs a letter for her employer. .. [facility] Medical History (Updated 08/18/25 @ 13:14 by ALEX Bolaños) ADHD Anxiety Eczema Elevated cholesterol Elevated liver enzymes Health care maintenance History of Helicobacter pylori infection History of substance abuse Hypothyroidism Low vitamin D level Methadone dependence Perimenopausal Raynaud phenomenon Thyroiditis Family History Mother No problems noted. Father No problems noted. 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 1. Little interest or pleasure in doing things: not at all 2. Feeling down, depressed, or hopeless: several days (Anxiety) 3. Trouble falling or staying asleep, or sleeping too much: nearly every day 4. Feeling tired or having little energy: nearly every day 5. Poor appetite or overeating: not at all 6. Feeling bad about yourself - or that you are a failure or have let yourself or your family down: not at all 7. Trouble concentrating on things, such as reading the newspaper or watching television: not at all 8. Moving or speaking so slowly that other people could have noticed. Or the opposite - being so fidgety or restless that you have been moving around a lot more than usual: not at all 9. Thoughts that you would be better off or of hurting yourself in some way: not at all Total score: 7 Depression Screening Interpretation: Positive (related to fatigue and insomnia) Depression Screening Follow-up: Follow-up Visit Requested Depression Screening Done: Yes Source: Developed by Drs. Talat Lundy, Cheli Skinner, Palmer Downs and colleagues, with an educational khari from [employer]. Thrive Questionnaire Date Thrive assessed: 08/18/25 I am a: Patient Within the past 12 months, did the food you bought not last and you didn't have the money to get more?: Never true Within the past 12 months, did you worry whether your food would run out before you got money to buy more?: Never true Do you have trouble paying for medicines?: No Do you have trouble getting transportation to medical appointments?: No Do you have trouble paying your heating and electricity bill?: No Do you have trouble taking care of your child, family member or friend?: No Do you have trouble with day-to-day activities such as bathing, preparing meals, shopping, managing finances, etc.?: No Are you currently unemployed and looking for a job?: No Are you interested in more education?: No THRIVE Score: 0 AUDIT C Alcohol Use Questionnaire (AUDIT-C) 1. How often do you have a drink containing alcohol?: Never 3. How often do you have six or more drinks on one occasion?: Never Total Score: 0 BRADY-7 AMB Questionnaire BRADY-7 Date BRADY - 7 assessed: 08/18/25 Feeling nervous, anxious, or on edge: 0 = Not at all Not being able to stop or control worryin = Not at all Worrying too much about different things: 0 = Not at all Trouble relaxin = Not at all Being so restless that it is hard to sit still: 0 = Not at all Becoming easily annoyed or irritable: 0 = Not at all Feeling afraid as if something awful might happen: 0 = Not at all Total BRADY-7 score (0-4 normal; 5-9 mild; 10-14 moderate; 15-21 severe): 0 Source: Developed by Drs. Talat Lundy, Cheli Skinner, Palmer Downs and colleagues, with an educational khari from [employer]. Review of Systems Const Details: CONSTITUTIONAL Reports fatigue and muscle weakness, denies weight changes HEAD/NECK Negative RESPIRATORY Negative CARDIOVASCULAR Reports Raynaud's phenomenon, denies chest pain GASTROINTESTINAL Negative MUSCULOSKELETAL Negative NEUROLOGICAL Negative SKIN Reports eczema exacerbation post-vaccination PSYCHIATRIC Negative Physical exam (Primary Care) Vital Signs: Last Vital Signs Temp 97.2 F 08/18/25 08:36 Pulse 98 08/18/25 08:36 BP 122/80 08/18/25 08:36 Pulse Ox 99 08/18/25 08:36 Oxygen Delivery Method Room Air 08/18/25 08:36 BMI result Body Mass Index 23.1 GENERAL Well developed, Well nourished, in no apparent distress HEENT Head-Normocephalic Neck- Supple, No lymphadenopathy, thyroid WNL RESPIRATORY Normal I:E, Clear to auscultation CARDIOVASCULAR Regular, rate and rhythm, No murmurs or rubs GASTROINTESTINAL Soft, nontender, normal bowel sounds, no masses NEUROLOGICAL Gait normal PSYCHIATRIC Oriented to person, place and time Mood and affect WNL Appearance WNL Speech WNL Thought processes WNL Tobacco/Smoking Status: Tobacco use Status Tobacco use date assessed 08/18/25 08/18/25 08:37 Patient Tobacco Use Status Former Tobacco user 08/18/25 08:37 e-Cigarette/Vaping Use Currently Using (only vaping 08/18/25 10:34 ) PHQ-9: PHQ-9 Score PHQ-9: Total score 7 08/18/25 10:34 Depression Screening Interpretation: Positive (related to fatigue and insomnia) Depression Screening Follow-up: Follow-up Visit Requested Thrive Assessment: Date of Thrive Assessment Date Thrive assessed 08/18/25 08/18/25 08:37 Coding Level of Care Code Established Pt Est Pt Level 4 (16642) Patient Type Established Diagnoses Raynaud's phenomenon without gangrene I73.00 Raynaud?s-associated gangrene presence: without gangrene Acquired hypothyroidism E03.9 Hypothyroidism type: acquired Thyroiditis E06.9 Other eczema L30.8 Eczema type: other Elevated cholesterol E78.00 Elevated liver enzymes R74.8 Time Spent (min) 30 Comment Time spent on lab review, medication reconciliation, H&P, patient education, letter, order Assessment & Plan Assessment & Plan (1) Raynaud phenomenon: Code(s): I73.00 - Raynaud's syndrome without gangrene Category: Medical Qualifiers: Raynaud?s-associated gangrene presence: without gangrene Qualified Code(s): I73.00 - Raynaud's syndrome without gangrene Plan: Nifedipine 30 mg daily has been prescribed to manage Raynaud's symptoms, with instructions to monitor for dizziness or lightheadedness due to potential blood pressure changes. The patient is advised to take the medication at bedtime. Patient to follow up in 3 months or sooner if symptoms persist or worsen. (2) Hypothyroidism: Code(s): E03.9 - Hypothyroidism, unspecified Category: Medical Qualifiers: Hypothyroidism type: acquired Qualified Code(s): E03.9 - Hypothyroidism, unspecified Plan: The patient will continue on the current thyroid medication dosage, with a follow-up lab test scheduled in three months to monitor antibody and thyroid levels Patient to follow up in 3 months or sooner if symptoms persist or worsen.. (3) Thyroiditis: Code(s): E06.9 - Thyroiditis, unspecified Category: Medical Plan: The patient will continue on the current thyroid medication dosage, with a follow-up lab test scheduled in three months to monitor antibody and thyroid levels Patient to follow up in 3 months or sooner if symptoms persist or worsen.. (4) Eczema: Code(s): L30.9 - Dermatitis, unspecified Category: Medical Qualifiers: Eczema type: other Qualified Code(s): L30.8 - Other specified dermatitis Plan: The patient is advised to avoid vaccinations that have previously triggered eczema flare-ups. Management will focus on symptomatic relief and monitoring for any further exacerbations. Letter given for employer. (5) Elevated cholesterol: Code(s): E78.00 - Pure hypercholesterolemia, unspecified Category: Medical Plan: The patient is advised to maintain a diet low in saturated fats and to continue monitoring cholesterol levels annually. If cholesterol levels increase, further dietary adjustments or pharmacological interventions may be considered. (6) Elevated liver enzymes: Code(s): R74.8 - Abnormal levels of other serum enzymes Category: Medical Plan: Will request US of liver to evaluate. Patient to follow up in 3 months or sooner if symptoms persist or worsen. Plan During the visit, we discussed the patient's thyroid function, which is currently euthyroid, but with elevated antibodies. We plan to monitor these levels closely with follow-up labs in three months. The patient's cholesterol is slightly elevated, and we discussed dietary modifications to manage this. For Raynaud's phenomenon, nifedipine was prescribed, and the patient was advised on potential side effects. We also addressed the patient's eczema, which flares post-vaccination, advising avoidance of triggering vaccines. An ultrasound of the liver was recommended to ensure no underlying issues. Orders: Orders TSH reflex Free T4 Today E03.9 - Hypothyroidism, unspecified, E06.9 - Thyroiditis, unspecified Thyroglobulin Antibodies Today E06.9 - Thyroiditis, unspecified Thyroid Peroxidase Antibodies Today E06.9 - Thyroiditis, unspecified US abdomen limited Today R79.89 - Other specified abnormal findings of blood chemistry Medications: New nifedipine ER 30 mg PO DAILY 90 tabs 1RF for Raynaud's Patient Instructions: - Continue current thyroid medication and return for lab tests in three months. - Maintain a diet low in saturated fats and monitor cholesterol levels annually. - Take nifedipine 30 mg at bedtime and monitor for dizziness or lightheadedness. - Avoid vaccinations that have previously triggered eczema flare-ups. - Schedule and attend a liver ultrasound as recommended.
--- OUTSIDE RECORDS SUMMARY | 2025-08-18 12:32 | XMS_ITS | Patient Health Record ---
Author Organization [facility] Address [address] [place] [address] Care Team Providers Care Assistant Sales Manager Name Role Phone Passer Iris Mackey Primary Care Provider Enrrique Lazar Jr Unavailable Allergies Allergen (clinical drug ingredient) [...] Problem Status W/U Status Risk Notes Problem [id number] Gastro-esophagea l reflux disease without esophagitis (K21.9) Active confirmed Problem [id number] Dysphagia, unspecified type (R13.10) Active confirmed Problem [id number] Abnormal barium swallow (R93.3) Active confirmed Problem [id number] H. pylori infection (A04.8) Active confirmed Plan Of Treatment Pending Test Test Name Order Date H PYLORI AG, STOOL 08/09/2020 Future Test Test Name Order Date UPPER GI ENDOSCOPY 05/29/2019 Next Appt Details Provider Name:Enrrique schneider Jr, 11/23/2025 01:35:00 PM, [address] [place] [address], [address], [place], [address], Insurance Providers Payer Name Payer Address Payer Phone Subscriber Number Group Number Insured Name Patient Relationship to Insured Coverage Start Date Coverage End Date Diversified Shyla [address] [place] [phone] [id number] RUTHY DAMON Self - patient is the insured MEDICAID OF [facility] [address] [place] [phone] [id number] RUTHY DAMON Self - patient is the insured Medical (General) History Medical History History ICD Code substance abuse, currently in remission chronic sinusitis allergies back pain gastroesophageal reflux dise ase, upper endoscopy 07/31 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 pylori infection and treated Surgical History Surgery Date(Month/Year)
== END 2025-08-18 11:16 | disposition home or self-care (01) ==
LOC: HO.HMCHD 10:25
PROVIDERS: PCP Physician Assistant Medical; Visit Provider Physician Assistant Medical
DX: I73.00 Raynaud's syndrome without gangrene (principal); E03.9 Hypothyroidism, unspecified; E06.9 Thyroiditis, unspecified; L30.8 Other specified dermatitis; E78.00 Pure hypercholesterolemia, unspecified; R74.8 Abnormal levels of other serum enzymes

== ENCOUNTER 2025-11-02 17:34 | Emergency (ER) | payer OTHER, SELFPAY ==
[2025-11-02 17:38] VITALS: BP 135/75; PULSE 100; RESP 18; TEMP 36.6; O2SAT 97; BMI 24.2
--- NOTE | 2025-11-02 17:42 | ED.GENADULT ---
HPI - General Adult General Chief complaint: Neck Pain/Injury Stated complaint: throat pain, unable to swallow Time Seen by Provider: 11/02/25 21:05 Source: patient Mode of arrival: ambulatory Limitations: no limitations History of Present Illness ED Provider: Dr. Lucy Gr HPI narrative: Patient comes to the emergency room complaining of posterior neck pain when she swallows. Patient denies any injury. Patient states that she was feeling a bit of contractions around her neck, both in the front are in the back. Patient denies sore throat. Patient states it is just a weird sensation that is been going on all day. Patient denies fever chills, denies cough. Denies nausea or vomiting. Related Data Home Medications ?Medication ?Instructions ?Recorded ?Confirmed dextroamphetamine-amphetamine ER PO DAILY 02/13/25 08/02/25 30 mg 24hr capsule,extend release methadone 10 mg tablet 30 mg PO DAILY 02/13/25 08/02/25 sertraline 100 mg tablet 100 mg PO DAILY 02/13/25 08/02/25 Previous Rx's ?Medication ?Instructions ?Recorded levothyroxine 100 mcg tablet 100 mcg PO DAILY 90 days #90 tabs 03/30/25 ferrous sulfate 325 mg (65 mg 325 mg PO Q OTHER DAY #90 tabs 08/13/25 iron) tablet nifedipine 30 mg tablet,extended 30 mg PO DAILY for Raynaud's #90 08/18/25 release tabs gabapentin 300 mg capsule 300 mg PO TID #90 caps 10/14/25 cyclobenzaprine 5 mg tablet 5 mg PO TID PRN muscle spasm #12 11/02/25 tabs Allergies Allergy/AdvReac Type Severity Reaction Status Date / Time dextromethorphan Allergy Unknown Verified 08/18/25 08:36 Penicillins (PCN) Allergy Unknown Verified 11/02/25 17:41 Review of Systems Review of Systems: Constitutional : No Weight loss, No Fever, No Chills, No Night Sweats, No Fatigue, No Malaise ENT/Mouth : No Hearing loss, No Ear Pain, No Nasal Congestion, No Sinus Pain, No Hoarseness, No sore throat, No Rhinorrhea, No Swallowing Difficulty Eyes: No Eye Pain, No Swelling, No Redness, No Foreign Body, No Discharge, No Vision Changes Cardiovascular : No Chest Pain, No SOB, No Dyspnea on Exertion, No Orthopnea, No Edema, No Palpitations Respiratory : No Cough, No Sputum, No Wheezing, No Smoke Exposure, No Dyspnea Gastrointestinal : No Nausea, No Vomiting, No Diarrhea, No Constipation, No abdominal Pain, No Hematochezia, No Melena Genitourinary : no irregular bleeding, No Dysuria, No Urinary Frequency, No Hematuria, No Urinary Incontinence, No Urgency, No Flank Pain, No Urinary Flow Changes, No Hesitancy Musculoskeletal : Complaining of anterior posterior spasms with swallowing. Patient denies sore throat, denies burning like sensation in the throat Skin : No Skin Lesions, No rash Neuro : No Weakness, No Numbness, No Paresthesias, No Loss of Consciousness, No Dizziness, No Headache Psych : No Anxiety/Panic, No Depression, No SI/HI/AH/VH, No Social Issues, Heme/Lymph: No Bruising, No Bleeding,No Lymphadenopathy Endocrine : No Polyuria, No Polydipsia, No Temperature Intolerance PMFSH Past Medical History Medical History Elevated liver enzymes Elevated cholesterol Eczema Thyroiditis History of Helicobacter pylori infection Anxiety ADHD History of substance abuse Raynaud phenomenon Health care maintenance Perimenopausal Hypothyroidism Low vitamin D level Methadone dependence Family History Family History Mother No problems noted. Father No problems noted. 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 Oriented X3. No acute distress. Eyes: Pupils equal, round and reactive to light. ENT: Pharynx normal. Oropharynx within normal limits, no erythema, no exudates, normal palatine tonsils, no phelgmon in the soft palate and Neck: Normal inspection. Patient is able to flex and extend the neck with normal range of motion, states it feels a bit tense to extend the neck and lower back hurts but is able to do so. No pain or discomfort with chin to chest movements. No palpable masses, no palpable step-offs CVS: Normal heart rate and rhythm. Pulses normal. Normal S1 and S2 Respiratory: No respiratory distress. Breath sounds normal. No Wheezing. No rales Abdomen: Soft and nontender. No rigidity. No distention. Skin: Skin warm and dry. Normal skin color. Normal skin turgor. Extremities: No lower extremity edema. No Lacerations. No Rash Neuro: Oriented X 3. No motor deficit. No sensory deficit. Moving all extremities. No slurred speech. CN 2 through 12 grossly intact Psych: calm, cooperative, normal affect Vital Signs: Vital Signs - 24 hr 11/02/25 17:38 11/02/25 21:26 Temperature 98 F 98.6 F Pulse Rate 100 82 Respiratory Rate 18 20 Blood Pressure 135/75 118/77 Pulse Oximetry 97 98 Oxygen Delivery Method Room Air Room Air BMI result Body Mass Index 24.2 Course Course Course Narrative: RME: 45 yold female with pmh of hashimotos presents to the ED for sore throat and posterior neck pain with difficulty swalloing liquid and food. Patient states no fever, chest pain, or shortness of breath. Medications Administered Discontinued Medications Generic Name Dose Route Start Last Admin Trade Name Jordanq PRN Reason Stop Dose Admin Diazepam 5 mg 11/02/25 21:23 11/02/25 21:39 Diazepam 10 Mg/2 Ml Cartridge IM 11/02/25 21:24 5 mg STAT STA Administration Ketorolac Tromethamine 60 mg 11/02/25 21:23 11/02/25 21:39 Ketorolac Tromethamine 60 Mg/2 Ml Vial IM 11/02/25 21:24 60 mg ONCE ONE Administration Medical Decision Making Medical Decision Making [facility] Narrative: My interpretation of labs: Patient's white blood cell count 11.7, likely reactive leukocytosis, no clear source of infection.. Hematology does not show any acute abnormality. Patient's chemistry within normal limits, LFTs normal, TSH within normal limits. Serology negative for influenza a, influenza B, RSV, COVID a negative for strep Seems that patient is expressing musculoskeletal spasms. Patient was given IM ketorolac and diazepam. Patient was given ketorolac and diazepam. Patient states that she feels better. Patient states that she feels a bit short of breath when she breathes through her nose but not her mouth. Patient's seems to have some nasal congestion. Patient likely has a viral illness Differential Diagnosis Differential Diagnoses: The differential diagnosis associated with the presentation includes (As above) Lab Data MDM Lab Attestation statement: I reviewed the patient's lab results. 11/02/25 17:52 11/02/25 17:52 Labs: Lab Results 11/02/25 Range/Units 17:52 WBC 11.7 H (4.8-10.8) X10*3/uL RBC 3.86 L (4.20-5.50) X10*6/uL Hgb 11.4 L (12.0-16.0) g/dl Hct 34.6 L (37.0-47.0) % MCV 89.6 (80.0-98.0) fL MCH 29.5 (27.0-33.0) pg MCHC 32.9 (31.0-35.0) g/dl RDW 14.7 (11.0-16.0) % Plt Count 377 D (160-400) X10*3/uL MPV 9.8 (9.4-12.3) fL Immature Gran % (Auto) 0.4 (0.0-0.4) % Neut % (Auto) 78.1 H (45-73) % Lymph % (Auto) 12.1 L (20-40) % Cole % (Auto) 8.4 (2-11) % Eos % (Auto) 0.5 (0-4) % Baso % (Auto) 0.5 (0-2) % Lymph # (Auto) 1.4 (1.2-4.9) X10*3/uL Cole # (Auto) 1.0 (0.1-1.2) X10*3/uL Eos # (Auto) 0.1 (0.0-0.4) X10*3/uL Baso # (Auto) 0.1 (0.0-0.2) X10*3/uL Abs Immat Gran (auto) 0.05 H (0.00-0.03) X10*3/uL Absolute Neuts (auto) 9.1 H (2.0-8.3) x10*3/uL Absolute Nucleated RBC 0.000 (0.0-0.012) X10*3/uL Nucleated RBC % (auto) 0.0 (0.0-0.2) /100WBC Sodium 141 (135-145) mmol/L Potassium 3.5 (3.3-5.1) mmol/L Chloride 104 (96-108) mmol/L Carbon Dioxide 31 H (22-29) mmol/L Anion Gap 10 L (12-20) BUN 11 (9-16) mg/dL Creatinine 0.66 (0.5-1.4) mg/dL Estim Creat Clear Calc 91.0 Estimated GFR > 60 Random Glucose 95 (60-115) mg/dL Calcium 9.1 (8.4-10.2) mg/dL Total Bilirubin 0.3 (0.0-1.0) mg/dL AST 25 (5-31) U/L ALT 26 (0-31) U/L Alkaline Phosphatase 74 (39-117) U/L Total Protein 7.2 (6.5-8.0) g/dL Albumin 4.4 (3.5-5.0) g/dL TSH 0.61 (0.32-4.0) uIU/mL Influenza Type A (PCR) NEGATIVE (Negative) Influenza Type B (PCR) NEGATIVE (Negative) RSV RNA Qual (PCR) NEGATIVE (Negative) SARS-CoV-2 RNA (RT-PCR) NEGATIVE (Negative) S. pyogenes GrpA ANNETTE Negative (Negative) Discharge Plan Discharge Clinical Impression: Acute viral syndrome, Musculoskeletal pain Patient Disposition: Home, Self-Care Instructions: Viral Syndrome (ED), Musculoskeletal Pain (ED) Additional Instructions: Please follow-up with your primary care physician tomorrow. If you have any worsening or new symptoms, please return to the emergency room or call 911 Prescriptions: New cyclobenzaprine 5 mg tablet 5 mg PO TID PRN (Reason: muscle spasm) Qty: 12 0RF No Action levothyroxine 100 mcg tablet 100 mcg PO DAILY 90 Days Qty: 90 3RF ferrous sulfate 325 mg (65 mg iron) tablet 325 mg PO Q OTHER DAY Qty: 90 0RF Rx Instructions: take with vitamin c gabapentin 300 mg capsule 300 mg PO TID Qty: 90 0RF nifedipine 30 mg tablet extended release 30 mg PO DAILY Qty: 90 1RF dextroamphetamine-amphetamine 30 mg capsule,extended release 24hr PO DAILY sertraline 100 mg tablet 100 mg PO DAILY methadone 10 mg tablet 30 mg PO DAILY Interventions: ED Discharge Assessment Last Done: 11/02/25 23:57 Discharge Date/Time: 11/03/25 00:19 Print Language: [place]
[2025-11-02 17:58] LABS: MANUAL DIFF FLAG NO
[2025-11-02 18:12] LABS: IDNOW Serial# 58CA691E; Strep A Nucleic Acid Negative (Negative)
[2025-11-02 18:15] LABS: Hematocrit 34.6 % (37.0-47.0); Hemoglobin 11.4 g/dl (12.0-16.0); Imm Gran Abs Auto 0.05 X10*3/uL (0.00-0.03); Imm Gran Pct Auto 0.4 % (0.0-0.4); Lymphocytes Absolute Auto 1.4 X10*3/uL (1.2-4.9); Mean Corpuscular HGB Conc 32.9 g/dl (31.0-35.0); Mean Corpuscular Hemoglobin 29.5 pg (27.0-33.0); Mean Corpuscular Volume 89.6 fL (80.0-98.0); NRBC Abs Auto 0.000 X10*3/uL (0.0-0.012); NRBC Pct Auto 0.0 /100WBC (0.0-0.2); Platelet Count 377 X10*3/uL (160-400); Red Blood Count 3.86 X10*6/uL (4.20-5.50); White Blood Count 11.7 X10*3/uL (4.8-10.8)
[2025-11-02 18:22] LABS: Alanine Aminotransferase 26 U/L (0-31); Albumin Level 4.4 g/dL (3.5-5.0); Alkaline Phosphatase 74 U/L (39-117); Anion Gap 10 (12-20); Aspartate Amino Transferase 25 U/L (5-31); Blood Urea Nitrogen 11 mg/dL (9-16); Calcium 9.1 mg/dL (8.4-10.2); Carbon Dioxide 31 mmol/L (22-29); Chloride 104 mmol/L (96-108); Creatinine Clr Calc Pharmacy 91.0; Estimated Glomerular Filt Rate > 60; Potassium 3.5 mmol/L (3.3-5.1); Sodium 141 mmol/L (135-145); Total Protein 7.2 g/dL (6.5-8.0)
[2025-11-02 18:35] LABS: Resp Syncy Virus RNA Qual PCR NEGATIVE (Negative); SARS COV2 PCR INHOUSE NEGATIVE (Negative)
--- OUTSIDE RECORDS SUMMARY | 2025-11-02 19:02 | XMS_ITS | Data Portability ---
Author Organization [facility] [address] Address [address] [place] [address] Assessment No assessment recorded. Plan of Treatment Reminders Order Date Submit Date Provider Last Modified By Organization Details Last Modified Time Details Appointments None recorded. Lab None recorded. Referral None recorded. Procedures None recorded. Surgeries None recorded. Imaging None recorded. Medication Orders polymyxin B sulfate 10,000 unit-trime thoprim 1 mg/mL eye drops 2022 023 [id number], [address], [place], [id number], 17:18:55 Patient TargetsNo targets recorded. Patient Instructions Encounter Date Encounter Id Patient Instructions Last Modified By Organization Details Last Modified Time 07/01/2023 [id number] [email or web address]: care instructions [email or web address] Not available 07/01/2023 17:19:25 Reason for Referral None Reported. Problems Name Problem SNOMED Code Status Onset Date Resolution Date Notes Provider Name and Address Organization Details Recorded Time Eczema 09033275 Active 2022 FILIPE valdes, [place] - [facility] 3 17:02:27 Attention deficit hyperactivity disorder 777516100 Active 2022 FILIPE valdes, [place] - [facility] 17:03:02 Herpes simplex type 1 infection 227612595 Active 2022 [facility] Name and Address Organization Details Recorded Time 122623 dextromet horphan medicatio n other Not available Not available 07/01/2023 3289 RxNorm feel s funny FILIPE valdes [place] - [facility] [...] [Score] - Reported Respiratory rate Oxygen saturation Heart rate Body temperature Systolic And Diastolic Provider Name and Address Organization Details Last Updated DateTime 3 163.83 cm 22 kg/m2 10887.0 1 g 0 19 /min 98 % 104 /min 97.7 [degF] 105/74 mm[Hg] FILIPE JOHNSON - [facility] 17:06:00 Social History Question Answer Notes LastModified by Organizat ion Details LastModified Time Tobacco Smoking Status Former Smoker [facility] - [facility] 07/01/2023 17:03:40 When Did You Quit Smoking? 6-10yearssin celastcigare tte [email or web address] Information not available 07/01/2023 Have You Recently Traveled Abroad? No [email or web address] Information not available 07/01/2023 Sex: Unknown Functional Status Question Answer Note LastModified by Organizat ion Details LastModified Time Do you use any illicit or recreational drugs? No [email or web address] Information not available 07/01/2023 Do you or have you ever used any other forms of tobacco or nicotine? Yes [email or web address] Information not available 07/01/2023 What is your level of alcohol consumption? None [email or web address] Information not available 07/01/2023 Do you or have you ever used e-cigarettes or vape? Current user of electronic cigarettes Information not available 07/01/2023 Mental Status None recorded. Family History Nothing Reported. Medical History No medical history recorded. Gynecological History Statement/Question Response Date of LMP 06/03/2023 Is there any chance of ? No Obstetrics History GPAL:G 0 P 0 0 0 0 Past Encounters Encounter ID Performer Location Encounter Start Date Encounter Closed Date Diagnosis/Indication Diagnosis SNOMED-CT Code Diagnosis ICD10 Code Diagnosis IMO Codes Diagnosis Note [id number] Anne-Marietino CamiloJENNIFER [address] [facility] [address] [place] [address] 07/01/2023 16:40:33 07/01/2023 17:21:57 Acute conjunctivitis of left eye 2881668862 98859 H10.32 Based on your presentati on and [...] Recorded Advance Directives Directive None Recorded Payers Insurance Date Sequence Insurance Name Policy Number Policy Quintana Covered Member ID Quintana Member ID Guarantor Name 07/01/2023 1 [facility] [employer] - TOGETHER (MEDICAID HMO) [id number] Lurdes Sandhu [id number] Lurdes Sandhu Notes Date Note Type Note Provider Name and Address Organization Details Recorded Time 07/01/2023 text/html Eye problemsRepo rted by PatientHPIFor eye symptoms, patient reportssensitivity to light,redness,pain in the eyes, anddischarge. For source of patient information, patient reportsinformation obtained from patientandpatient arrived at urgent care ambulatory. For location, patient reportsleft. For severity, patient reportsmoderate. For onset/timing, patient [id number]. For modifying factors, patient reportsnothing gives relief.?pink eye left. Eyelid redness, itchiness, purulent drainage started yesterday. Anne-Marie Camilo NP [address] [place], [address], [place] - [facility] 07/01/2023 17:29:52 OBGyn Episode No OBEpisode recorded.
--- OUTSIDE RECORDS SUMMARY | 2025-11-02 19:02 | XMS_ITS | Patient Health Record ---
Author Organization [facility] Address [address] [place] [address] Care Team Providers Care Consumer Loan Processor Name Role Phone Passer Iris Mackey Primary Care Provider Enrrique Lazar Jr Unavailable Allergies Allergen (clinical drug ingredient) Drug/Non Drug Allergy documented on EMR Reaction Allergy Type Onset Date Status Information temporarily unavailable cough medication (uncoded) Unknown Allergy Active Reason For Referral No Information Medications Medication SIG (Take, Route, Frequency, Duration) Notes Start Date End Date Status Omeprazole 20 MG Tablet Delayed Release Disintegrating 1 tablet Orally Twice a day; Duration: 30 Active Omeprazole 20 MG Tablet Delayed Release Disintegrating 2 tablets Orally Once a day; Duration: 30 day(s) 10/06/2020 Active Atomoxetine HCl 60 MG Capsule Orally Active Methadone HCl 58 mg Active valACYclovir HCl 1 GM Tablet Orally PRN Active cloNIDine HCl 0.1 MG Tablet 1 tablet at bedtime Orally Once a day; Duration: 30 day(s) Active Tylenol prn Active Vitamin D Active Biotin Active Fluticasone Propionate Active Ibuprofen PRN Active Immunizations Vaccine Route Administration Date Status Comme nts Influenza Unknown 04/10/2019 Refused Influenza Unknown 07/16/2019 Administered Social History Tobacco Use: Social History Observation Description Date Details (start date - stop date) Former Smoker NA - NA Social History Drugs/Alcohol: Social Info Question Answer Notes Alcohol Screen Did you have a drink containing alcohol in the past year? No Points 0 Interpretation Negative Tobacco Use: Social Info Question Answer Notes Tobacco Use/Smoking Patient is a former smoker How long has it been since you last smoked? 1-5 years Additional Details Category Social Info Options Details Miscellaneous: Marital status: Occupation: [employer] Problems Problem Type SNOMED Code ICD Code Onset Dates Problem Status W/U Status Risk Notes Problem Gastro-esophageal reflux disease without esophagitis (763319448) Gastro-esophag eal reflux disease without esophagitis (K21.9) Active confirmed Problem Dysphagia (36024385) Dysphagia, unspecified type (R13.10) Active confirmed Problem Barium swallow abnormal (926654894) Abnormal barium swallow (R93.3) Active confirmed Problem Helicobacter pylori gastrointestinal tract infection (014542554) H. pylori infection (A04.8) Active confirmed Plan Of Treatment Pending Test Test Name Order Date H PYLORI AG, STOOL 08/09/2020 Future Test Test Name Order Date UPPER GI ENDOSCOPY 05/29/2019 Next Appt Details Provider Name:Enrrique schneider , 11/23/2025 01:35:00 PM, [address] [place] [address], [facility], [place], [address], Insurance Providers Payer Name Payer Address Payer Phone Subscriber Number Group Number Insured Name Patient Relationship to Insured Coverage Start Date Coverage End Date [employer] [address] [place] [phone] [id number] RUTHY DAMON Self - patient is the insured Medical (General) History Medical History History ICD Code substance abuse, currently in remission chronic sinusitis allergies back pain gastroesophageal reflux dise ase, upper endoscopy 07/31 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 pylori infection and treated Surgical History Surgery Date(Month/Year)
--- NOTE | 2025-11-02 20:15 | PC.NURSE ---
assumed care of pt, pt reports neck/throat pain, unable to swallow, hx of hypothyroidism, pt takes levothyroxin and had labs drawn recently, pt reports they were all normal. pt unsure what this could be, feels like her throat muscles are enlarged. no difficulty breathing, denies SOB, respirations even and unlabored.
[2025-11-02 21:26] VITALS: BP 118/77; PULSE 82; RESP 20; TEMP 37; O2SAT 98
[2025-11-02] MEDS: diazePAM 10 MG/2 ML CARTRIDGE 5 MG IM (21:39)
[2025-11-02 23:57] VITALS: BP 120/68; PULSE 78; RESP 18; TEMP 36.8; O2SAT 98
== END 2025-11-03 00:19 | disposition home or self-care (01) ==
PROVIDERS: Physician Assistant; Emergency Provider Emergency Medicine; PCP Physician Assistant Medical
DX: B34.9 Viral infection, unspecified (principal); M79.10 Myalgia, unspecified site; M54.2 Cervicalgia; R13.10 Dysphagia, unspecified; Z03.818 Encounter for observation for suspected exposure to other biological agents ruled out; Z79.899 Other long term (current) drug therapy
CPT/HCPCS: 80053; 84443; 85025; 87637; 87651; 96372; 99284; J1885; J3360